=== PATIENT | female | born 1940 | race Caucasian/White ===

== ENCOUNTER 2020-06-02 15:48 | Outpatient (CLI) | payer MEDICARE ==
--- NOTE | 2020-06-03 16:58 | Ultrasound Report ---
PROCEDURE: Duplex Lwr Ext Arterial RT INDICATIONS: NON HEALING ULCER RT POSTERIOR HEEL TECHNIQUE: Color and pulse Doppler interrogation was performed of the right lower extremity arterial system, wit h image documentation. COMPARISON: None. FINDINGS: Common femoral artery: 158 cm/sec, with biphasic flow. Deep profunda femoral artery: 230 cm/sec, with biphasic flow. Proximal superficial femoral artery: 153 cm/sec, with monophasic flow. Mid superficial femoral artery: 137 cm/sec, with monophasic flow. Distal superficial femoral artery: 144 cm/sec, with monophasic flow. Popliteal artery: 94 cm/sec, with monophasic flow. Posterior tibial artery: 34 cm/sec, with monophasic flow. Only visualized distally. Anterior tibial artery/dorsalis pedis: 90/47 cm/sec, with monophasic flow. Holley-scale imaging description: Atherosclerotic plaque seen throughout. IMPRESSION: Exam is technically limited by body habitus and acoustic windows. 1. Elevated velocity in the profunda artery. Suspect is a 50% stenosis. 2. Elevated velocity in the anterior tibial artery. Suspect greater than 50% stenosis. 3. Biphasic and monophasic waveforms in the right lower extremity. Reviewed by: Gurdeep Matthews MD on 06/03/2020 4:57 PM PST Approved by: Gurdeep Matthews MD on 06/03/2020 4:57 PM PST Station ID: [id number]
== END 2020-06-02 15:49 | disposition home or self-care (01) ==
LOC: DI 15:48
PROVIDERS: ATTEND Family Medicine
DX: E11.51 Type 2 diabetes mellitus with diabetic peripheral angiopathy without gangrene (principal); L97.411 Non-pressure chronic ulcer of right heel and midfoot limited to breakdown of skin; I70.201 Unspecified atherosclerosis of native arteries of extremities, right leg

== ENCOUNTER 2020-06-14 08:00 | Outpatient (CLI) | payer MEDICARE ==
[2020-06-14 18:36] LABS: CALCIUM 9.8 mg/dL (8.5-10.3); CREATININE 1.9 mg/dL (0.4-1.0)
[2020-06-14 18:45] LABS: CREATININE,URINE 110.7 mg/dL; MICROALBUMIN,URINE 17.6 mg/dL (0-300.0)
[2020-06-14 20:48] LABS: HEMOGLOBIN A1c% 7.7 % (4.27-6.07)
== END 2020-06-14 23:59 | disposition home or self-care (01) ==
LOC: LAB.WCP 08:00
PROVIDERS: ATTEND Family Medicine
DX: I27.20 Pulmonary hypertension, unspecified (principal); E11.51 Type 2 diabetes mellitus with diabetic peripheral angiopathy without gangrene; E11.22 Type 2 diabetes mellitus with diabetic chronic kidney disease; N18.4 Chronic kidney disease, stage 4 (severe); E11.59 Type 2 diabetes mellitus with other circulatory complications; E11.621 Type 2 diabetes mellitus with foot ulcer; L97.509 Non-pressure chronic ulcer of other part of unspecified foot with unspecified severity
CPT/HCPCS: 36415; 80048; 82043; 82570; 83036

== ENCOUNTER 2020-09-16 08:00 | Outpatient (CLI) | payer MEDICARE ==
[2020-09-16 17:43] LABS: BASOPHILS % (AUTO) 0.3 %; EOSINOPHILS # (AUTO) 0.3 10^3/uL (0.0-0.7); EOSINOPHILS % (AUTO) 4.1 %; HCT - HEMATOCRIT 37.6 % (37.0-47.0); HGB - HEMOGLOBIN 11.4 g/dL (12.0-16.0); LYMPHOCYTES # (AUTO) 1.2 10^3/uL (1.5-3.5); LYMPHOCYTES % (AUTO) 18.4 %; MEAN CORPUSCULAR HEMOGLOBIN 30.3 pg (27.0-31.0); MEAN CORPUSCULAR HGB CONC 30.3 g/dL (32.0-36.0); MEAN PLATELET VOLUME 10.2 fL (7.9-10.8); MONOCYTES % (AUTO) 15.5 %; NEUTROPHILS % (AUTO) 61.4 %; PLT - PLATELET COUNT 241 10^3/uL (130-450); RED BLOOD COUNT 3.76 10^6/uL (4.20-5.40); RED CELL DISTRIBUTION WIDTH 14.1 % (12.0-15.0); WHITE BLOOD COUNT 6.6 x10^3/uL (4.8-10.8)
[2020-09-16 17:54] LABS: ALBUMIN 3.7 g/dL (3.2-5.5); ALBUMIN/GLOBULIN RATIO 0.8 (1.0-2.2); BILIRUBIN,TOTAL 0.6 mg/dL (0.2-1.0); CALCIUM 9.3 mg/dL (8.5-10.3); CREATININE 1.7 mg/dL (0.4-1.0); POTASSIUM 4.5 mmol/L (3.5-5.0); TOTAL PROTEIN 8.2 g/dL (6.7-8.2)
[2020-09-16 18:07] LABS: THYROID STIMULATING HORMONE 1.89 uIU/mL (0.34-5.60)
[2020-09-16 20:20] LABS: ESTIMATED AVERAGE GLUCOSE 137 mg/dL (70-100); HEMOGLOBIN A1c% 6.4 % (4.27-6.07)
== END 2020-09-16 23:59 | disposition home or self-care (01) ==
LOC: LAB.WCP 08:00
PROVIDERS: ATTEND Family Medicine
DX: I48.91 Unspecified atrial fibrillation (principal); I25.10 Atherosclerotic heart disease of native coronary artery without angina pectoris; E11.51 Type 2 diabetes mellitus with diabetic peripheral angiopathy without gangrene; I70.209 Unspecified atherosclerosis of native arteries of extremities, unspecified extremity; N31.9 Neuromuscular dysfunction of bladder, unspecified; K21.00 Gastro-esophageal reflux disease with esophagitis, without bleeding; I12.9 Hypertensive chronic kidney disease with stage 1 through stage 4 chronic kidney disease, or unspecified chronic kidney disease; E11.22 Type 2 diabetes mellitus with diabetic chronic kidney disease; N18.4 Chronic kidney disease, stage 4 (severe)
CPT/HCPCS: 36415; 80053; 83036; 84443; 85025

== ENCOUNTER 2020-10-23 12:15 | Outpatient (CLI) | payer MEDICARE | END 2020-10-23 12:16 | disposition critical access hospital (66) | LOC: EMS 12:15 | DX: R47.81 Slurred speech (principal); R53.1 Weakness | CPT/HCPCS: A0425; A0429 ==

== ENCOUNTER 2020-10-23 12:32 | Inpatient (IN) | payer MEDICARE ==
--- NOTE | 2020-10-23 13:33 | CT Report ---
PROCEDURE: HEAD WO INDICATIONS: R sided deficit TECHNIQUE: Noncontrast 4.5 mm thick angled axial sections acquired from the foramen magnum to the vertex. For r adiation dose reduction, the following was used: automated exposure control, adjustment of mA and/or kV according to patient size. COMPARISON: None. FINDINGS: Image quality: Excellent. CSF spaces: Basal cisterns are patent. No extra-axial fluid collections. Ventricles are normal in size and shape. Brain: No midline shift. No intracranial masses or hemorrhage. Holley-white matter interface is norm al. Age-related volume loss and small vessel ischemic change. Cavernous carotid calcifications and di stal vertebral artery calcifications. Skull and face: Calvarium and visualized facial bones are intact, without suspicious lesions. Sinuses: Visualized sinuses and mastoids are clear. IMPRESSION: 1. ASCVD. 2. No evidence acute stroke, hemorrhage, or mass. 3. Age-related volume loss and small vessel ischemic change. Reviewed by: Best Rodrigues MD on 10/23/2020 12:31 PM PARTHA Approved by: Best Rodrigues MD on 10/23/2020 12:31 PM AKSADIE Station ID: [id number]
--- NOTE | 2020-10-23 13:49 | ED Physician Documentation ---
PD HPI FOCAL NEURO - Stated complaint Stated Complaint: SLURRED SPEECH - Chief complaint Chief Complaint: Neuro - History obtained from History obtained from: Patient - History of Present Illness Timing - onset: Enter time (1999), Last night Timing - duration: Hours Timing - details: Abrupt onset, Still present Severity of deficit: Mild Weakness: Hand Associated symptoms: No: Headache, Nausea / vomiting, Seizure, Syncope, Fall, Head injury, Chest pain, Neck pain, Back pain, Fever Contributing factors: positive: Atrial fibrillation. negative: Anticoagulated Baseline status: positive: A&OX3, ambulatory, indep Similar symptoms before: Has not had sx before Recently seen: Not recently seen - Additional information Additional information: 80-year-old female was in her normal state of health yesterday afternoon and in the evening she began to develop some slurred speech at around 8 PM that her daughter noted on the telephone. The patient thought she was just tired and went to bed. When she awoke she had persistence of the slurred speech and she found it was a bit more difficult to get out of bed than it was to get into bed. She notes some difficulty with handwriting with the right hand and some difficulty with walking related to some clumsiness of the right leg. Review of Systems Constitutional: denies: Fever Eyes: reports: Loss of vision (getting shots for macular degeneration). denies: Decreased vision Ears: denies: Ear pain Nose: denies: Rhinorrhea / runny nose, Congestion Throat: denies: Dental pain / toothache Cardiac: denies: Chest pain / pressure, Palpitations Respiratory: reports: Dyspnea. denies: Cough GI: denies: Abdominal Pain, Nausea, Vomiting, Constipation, Diarrhea : reports: Other (has clarke in place has not noted any change in urine.) Skin: denies: Rash Musculoskeletal: reports: Other (LE swelling present earlier has resolved with increased doses of diuretic.). denies: Neck pain, Back pain Neurologic: reports: Focal weakness, Difficulty speaking. denies: Generalized weakness, Numbness, Confused, Altered mental status, Headache, Head injury, LOC PD PAST MEDICAL HISTORY - Past Medical History Past Medical History: Yes Cardiovascular: Congestive heart failure Endocrine/Autoimmune: Type 2 diabetes - Past Surgical History Past Surgical History: Yes - Allergies Allergies/Adverse Reactions: Allergies Allergy/AdvReac Type Severity Reaction Status Date / Time No Known Drug Allergies Allergy Verified 10/23/20 12:36 - Social History Does the pt smoke?: No Smoking Status: Never smoker Does the pt drink ETOH?: No Does the pt have substance abuse?: No - Immunizations Immunizations are current?: Yes PD ED PE NORMAL - Vitals Vital signs reviewed: Yes (hypertensive ) - General General: Alert and oriented X 3, No acute distress, Well developed/nourished, Other (dysarthric appropriate speech is present) - HEENT HEENT: Atraumatic, PERRL, EOMI - Neck Neck: Supple, no meningeal sign, No bony TTP - Cardiac Cardiac: RRR, No murmur - Respiratory Respiratory: No respiratory distress, Clear bilaterally - Abdomen Abdomen: Normal bowel sounds, Soft, Non tender, Non distended, No organomegaly - Back Back: No CVA TTP, No spinal TTP - Derm Derm: Normal color, Warm and dry, No rash - Extremities Extremities: No deformity, No edema - Neuro Neuro: Alert and oriented X 3, plumbing and heating mechanic 2-12 intact, No sensory deficit, Other (speech is dysarthric right upper is clumbsy mild weakness similar with right leg. ) Eye Opening: Spontaneous Motor: Obeys Commands Verbal: Oriented GCS Score: 15 - Psych Psych: Normal mood, Normal affect NIHSS - Time Time: 12:50 - Level of Consciousness Level of consciousness: (0) Alert, Keenly responsive LOC Questions: (0) Answers both Q's correct LOC Commands: (0) Performs both correctly - Gaze Best Gaze: (0) Normal - Visual Visual: (1) Partial hemianopia - Facial Palsy Facial Palsy: (0) Normal, symmetrical movement - Motor Arms (both separate) Motor Arm (right): (1) Drift Motor Arm (left): (0) No drift - Motor Legs (both separate) Motor Leg (right): (1) Drift Motor Leg (left): (0) No drift - Limb Ataxia Limb Ataxia: (0) Absent - Sensory Sensory: (0) Normal - Best Language Best Language: (0) No aphasia - Dysarthria Dysarthria: (1) [id number] dysarthria - Extinction and Inattention (formally neg Extinction and inattention: (0) No abnormality - Total Score/Results Total Score/Result: 4 Results - Vitals Vitals: Vital Signs - 24 hr 10/23/20 10/23/20 10/23/20 12:37 12:43 14:43 Temperature 36.6 C 36.6 C Heart Rate 78 80 80 Respiratory 16 16 14 Rate Blood Pressure 197/77 H 197/77 H 194/75 H O2 Saturation 95 95 93 Oxygen O2 Source Room air - EKG (time done) 1355 Rate: Rate (enter#) (80) Rhythm: NSR Ischemia: Normal ST segments Compare to prior EKG: Old EKG unavailable Computer interpretation: Agree with computer - Labs Labs: Laboratory Tests 10/23/20 10/23/20 10/23/20 13:57 13:57 13:57 WBC 9.2 RBC 4.31 Hgb 12.9 Hct 41.3 MCV 95.8 MCH 29.9 MCHC 31.2 L RDW 13.7 Plt Count 243 MPV 9.9 Neut # (Auto) 6.2 Lymph # (Auto) 1.3 L Lassen # (Auto) 1.3 H Eos # (Auto) 0.3 Baso # (Auto) 0.1 Absolute Nucleated RBC 0.00 Nucleated RBC % 0.0 Sodium 138 Potassium 4.4 Chloride 100 L Carbon Dioxide 28 Anion Gap 10.0 BUN 48 H Creatinine 1.8 H Estimated GFR (MDRD) 27 L Glucose 140 H Calcium 9.7 Total Bilirubin 0.7 AST 16 ALT 15 Alkaline Phosphatase 83 Troponin I High Sens 17.5 H* B-Natriuretic Peptide Total Protein 8.6 H Albumin 4.0 Globulin 4.6 H Albumin/Globulin Ratio 0.9 L Lipase 23 Urine Color Urine Clarity Urine pH Ur Specific [place] Urine Protein Urine Glucose (UA) Urine Ketones Urine Occult Blood Urine Nitrite Urine Bilirubin Urine Urobilinogen Ur Leukocyte Esterase Ur Microscopic Review Urine Culture Comments 10/23/20 10/23/20 13:57 14:24 WBC RBC Hgb Hct MCV MCH MCHC RDW Plt Count MPV Neut # (Auto) Lymph # (Auto) Lassen # (Auto) Eos # (Auto) Baso # (Auto) Absolute Nucleated RBC Nucleated RBC % Sodium Potassium Chloride Carbon Dioxide Anion Gap BUN Creatinine Estimated GFR (MDRD) Glucose Calcium Total Bilirubin AST ALT Alkaline Phosphatase Troponin I High Sens B-Natriuretic Peptide 51 Total Protein Albumin Globulin Albumin/Globulin Ratio Lipase Urine Color LIGHT YELLOW Urine Clarity CLEAR Urine pH 7.0 Ur Specific [place] 1.010 Urine Protein NEGATIVE Urine Glucose (UA) NEGATIVE Urine Ketones NEGATIVE Urine Occult Blood NEGATIVE Urine Nitrite NEGATIVE Urine Bilirubin NEGATIVE Urine Urobilinogen 0.2 (NORMAL) Ur Leukocyte Esterase NEGATIVE Ur Microscopic Review NOT INDICATED Urine Culture Comments NOT INDICATED - Rads (name of study) CT head Radiology: Prelim report reviewed (Impression: 1. ASCVD. 2. No evidence of acute stroke, hemorrhage, or mass. 3. Age-related volume loss and small vessel ischemic change.), EMP read indepedently, See rad report chest Radiology: Prelim report reviewed (Impression: Congestive heart failure exacerbation.), EMP read indepedently, See rad report Procedures - IVC sono (time) 1300 Bedside IVC sono: IVC measures (cm) (1.66), [facility] PD MEDICAL DECISION MAKING - ED course Complexity details: reviewed old records, reviewed results, re-evaluated patient, considered differential, d/w patient ED course: 80-year-old female with a history of type 2 diabetes intermittent atrial fibrillation pulmonary hypertension and chronic kidney disease stage IV as well as hypertension has had CVA with a right sided deficit. The motor deficit for the lower extremity is less than the upper extremity the motor deficit for the upper extremity is mild and the patient's most pronounced symptom is dysarthria without aphasia. We did not perform angiograms of the head and neck on arrival as the patient was outside of any therapeutic window and she has stage IV renal disease.She will need further work-up and stroke care.Despite the reading on the chest suggesting an exacerbation of CHF the patient has a normal and collapsing IVC on bedside ultrasound and her BNP is nil. Dr. Love is contacted in the case and graciously agrees to care for the patient in the hospital. Departure - Departure Disposition: 66 [facility] DC/Xfer Clinical Impression: Cerebrovascular accident (CVA) Qualifiers: CVA mechanism: unspecified Qualified Code(s): I63.9 - Cerebral infarction, unspecified Condition: Stable
[2020-10-23 14:02] LABS: BASOPHILS # (AUTO) 0.1 10^3/uL (0.0-0.1); BASOPHILS % (AUTO) 0.8 %; EOSINOPHILS # (AUTO) 0.3 10^3/uL (0.0-0.7); EOSINOPHILS % (AUTO) 3.6 %; HCT - HEMATOCRIT 41.3 % (37.0-47.0); HGB - HEMOGLOBIN 12.9 g/dL (12.0-16.0); LYMPHOCYTES # (AUTO) 1.3 10^3/uL (1.5-3.5); LYMPHOCYTES % (AUTO) 13.9 %; MEAN CORPUSCULAR HEMOGLOBIN 29.9 pg (27.0-31.0); MEAN CORPUSCULAR HGB CONC 31.2 g/dL (32.0-36.0); MEAN CORPUSCULAR VOLUME 95.8 fL (81.0-99.0); MEAN PLATELET VOLUME 9.9 fL (7.9-10.8); MONOCYTES # (AUTO) 1.3 10^3/uL (0.0-1.0); MONOCYTES % (AUTO) 13.8 %; NEUTROPHILS # (AUTO) 6.2 10^3/uL (1.5-6.6); NEUTROPHILS % (AUTO) 67.6 %; PLT - PLATELET COUNT 243 10^3/uL (130-450); RED BLOOD COUNT 4.31 10^6/uL (4.20-5.40); RED CELL DISTRIBUTION WIDTH 13.7 % (12.0-15.0); WHITE BLOOD COUNT 9.2 x10^3/uL (4.8-10.8)
--- NOTE | 2020-10-23 14:10 | XRAY Report ---
PROCEDURE: Chest 1 View X-Ray INDICATIONS: chest pain TECHNIQUE: One view of the chest was acquired. COMPARISON: None FINDINGS: Surgical changes and devices: Remote CABG. Lungs and pleura: No pleural effusions or pneumothorax. Interstitial pulmonary edema. Mediastinum: Mediastinal contours appear normal. Cardiomegaly. Bones and chest wall: No suspicious bony lesions. Overlying soft tissues appear unremarkable. IMPRESSION: Congestive heart failure exacerbation. Reviewed by: Best Rodrigues MD on 10/23/2020 1:08 PM PARTHA Approved by: Best Rodrigues MD on 10/23/2020 1:08 PM PARTHA Station ID: [id number]
[2020-10-23 14:18] LABS: ALBUMIN/GLOBULIN RATIO 0.9 (1.0-2.2); BILIRUBIN,TOTAL 0.7 mg/dL (0.2-1.0); CALCIUM 9.7 mg/dL (8.5-10.3); CREATININE 1.8 mg/dL (0.4-1.0); POTASSIUM 4.4 mmol/L (3.5-5.0); TOTAL PROTEIN 8.6 g/dL (6.7-8.2)
[2020-10-23 14:30] LABS: BILIRUBIN,URINE NEGATIVE (NEGATIVE); GLUCOSE, URINE (UA) NEGATIVE (NEGATIVE); KETONES,URINE (UA) NEGATIVE (NEGATIVE); LEUKOCYTE ESTERASE, URINE NEGATIVE (NEGATIVE); NITRITE,URINE NEGATIVE (NEGATIVE); OCCULT BLOOD,URINE NEGATIVE (NEGATIVE); PROTEIN,URINE NEGATIVE (NEGATIVE); UROBILINOGEN,URINE 0.2 (NORMAL) E.U./dL (NORMAL)
[2020-10-23 14:42] LABS: CLARITY,URINE CLEAR (CLEAR)
[2020-10-23] MEDS ORDERED: SODIUM CHLORIDE FLUSH 0.9% 10 ML SYRINGE IVP PRN (15:38)
[2020-10-23] MEDS ORDERED: ONDANSETRON 4 MG/2 ML VIAL IVP PRN (15:38)
[2020-10-23] MEDS ORDERED: ACETAMINOPHEN 325 MG TABLET PO PRN (15:38)
--- NOTE | 2020-10-23 15:51 | HISTORY & PHYSICAL EXAMINATION ---
Chief Complaint - Chief Complaint Chief Complaint: Stroke-like symptoms History of Present Illness - Admitted From Admitted From:: ED - History Obtained From History obtained from: ED provider and patient and her daughter, at bedside - History of Present Illness HPI Comment/Other: 80-year-old female with a history of obesity, type 2 diabetes on Insulin, paroxysmal atrial fibrillation, pulmonary hypertension, chronic kidney disease stage IV, hypertension, PAD who had a non-healing R heel ulcer and underwent revascularization (by PTCA?) of the R leg at [facility] 2 mos ago. Over the last 1 month, she was put on bid from once daily diuretic pill to treat leg edema. She presented to the ER after she noticed slurred speech which started at bedtime yesterday. She called her daughter who reported that she sounded "like she was drunk" and advised that she go to be seen in the ER for it but she did not and went to sleep. Today the slurred speech continued after awakening and also she noticed more difficulty/clumsiness getting out of bed. She had obvious dysarthric speech, by ER eval, and subtle R arm and R leg weakness. She had a head CT done, without contrast due to having a creat of 1.9. It showed no parenchymal stroke findings but small vessel ischemic changes seen and age- related volume loss. A CXR was read as having CHF. She is being admitted to Inpatient status on the Hospitalist service, for further evaluation and management of an acute stroke with symptoms that have lasted approx. 20 hours. History - Past Medical History Cardiovascular: reports: Congestive heart failure Endocrine/Autoimmune: reports: Type 2 diabetes Derm: reports: Other (R heel ulcer for 1.5 years.) MRSA Hx?: No - Past Surgical History Cardiovascular: reports: CABG (and stents after CABG), Angioplasty (of R leg artery 2 mos ago (details not known)) - Family & Social History Family History: Mother: , Father: Living arrangement: At home Living Situation: With family (Lives with her daughter and son-in-law at their house.) Social History Notes: She herself gave up driving a car 10 years ago. She mostly sits in the house with the right leg elevated (with the right heel ulcer) and does not walk much. - Substance History Use: Uses substance without health or social issues: NONE (She quit smoking cigarettes 30 years ago. She has half of a beer on rare occasions. No history of marijuana use.) - POLST Patient has POLST: No POLST Status: DNR (The patient would not want CPR but would agree to be on the ventilator if it is temporary.) Meds/Allgy - Home Medications Home Medications: Ambulatory Orders Medication Instructions Recorded Confirmed Aspirin [Bhupinder] 0.5 tab PO BID 10/23/20 Clopidogrel [Plavix] 75 mg PO DAILY 10/23/20 Furosemide [Lasix] 80 mg PO BID 10/23/20 Insulin Aspart [NovoLOG] 30 units SQ BID 10/23/20 Insulin Glargine [Lantus Solostar] 40 units SQ BID 10/23/20 Metoprolol Tartrate [Lopressor] 50 mg PO BID 10/23/20 Omeprazole 40 mg PO DAILY 10/23/20 Simvastatin [Zocor] 40 mg PO DAILY 10/23/20 cilostazoL [Cilostazol] 50 mg PO BID 10/23/20 - Allergies Allergies/Adverse Reactions: Allergies Allergy/AdvReac Type Severity Reaction Status Date / Time No Known Drug Allergies Allergy Verified 10/23/20 12:36 Review of Systems - Constitutional Constitutional: reports: Weakness - Musculoskeletal Musculoskeletal: reports: Muscle weakness - Integumentary Integumentary: reports: Lesions (The right heel ulcer has been treated for 1.5 years, it used to be approximately 20 cm in diameter, currently is down to 3 cm and is not deep.) - Neurological Neurological: reports: Slurred speech - All Other Systems All Other Systems: reports: Reviewed and negative Exam - Vital Signs Vital Signs: Vital Signs x48h Temp Pulse Resp BP Pulse Ox 10/23/20 14:43 80 14 194/75 H 93 10/23/20 12:43 36.6 C 80 16 197/77 H 95 10/23/20 12:37 36.6 C 78 16 197/77 H 95 - Physical Exam General Appearance: positive: No acute distress, Alert, Other (facial droop) Eyes Bilateral: positive: Normal inspection, PERRL, EOMI ENT: positive: ENT inspection nml, No signs of dehydration Neck: positive: Nml inspection, No JVD Respiratory: positive: No respiratory distress, Breath sounds nml Cardiovascular: positive: No murmur, Irregularly irregular Abdomen: positive: Non-tender, Nml bowel sounds, No distention, Other (Obese with pannus) Skin: positive: Warm, Dry Extremities: positive: Other (Trace left pedal edema, not on the right. Right heel ulcer is dry, pink and very shallow.) Neurologic/Psychiatric: positive: Oriented x3, Weakness (Right hand medical record librarian is 4/5, left is 5/5), Slurred/abnml speech Conclusion/Plan - Problem List (1) Cerebrovascular accident (CVA) Conclusion/Plan: She is past the window of any intervention or for transfer. We will place her on telemetry and watch for recurrence of her A. fib. Await reconciliation of her medication list to determine why she is not on anticoagulation if there has been prior A. fib. Check serial troponins. Obtain lipid panel and treat per guidelines. Obtain Echo with bubble study and look for source of embolus. Obtain brain MRI (on Sunday, today is Sunday). Obtain carotid evaluation with Dopplers to rule out source of embolus. Begin with PT and OT evals. Speech evaluation for speech therapy. Plan was discussed with the patient, and her daughter at bedside and they are agreeable with the plan. Qualifiers: CVA mechanism: unspecified Qualified Code(s): I63.9 - Cerebral infarction, unspecified (2) CKD (chronic kidney disease) Conclusion/Plan: As per Hx. Avoid nephrotoxins. Follow BMP daily (3) HTN (hypertension) Conclusion/Plan: Her blood pressure is elevated running 1 77-1 90 systolic. We will allow some permissive hypertension for the first 24 hours, but not above approx. 180 systolic. Awaiting reconciliation of her medication list to resume some of her BP meds. Diet will be low salt. (4) DM type 2 (diabetes mellitus, type 2) Conclusion/Plan: Will order a diabetic diet, fingerstick checks, sliding scale insulin for coverage. Awaiting reconciliation of her medication list to resume some of her medications. Will obtain A1c (5) CHF (congestive heart failure) Conclusion/Plan: The chest x-ray was read as CHF despite normal BNP. Place om telemetry. Obtain Echo. Will cycle troponins to rule out a cardiac event as cause of possible CHF. Wait for reconciliation of her medication list to resume some of her meds (6) PVD (peripheral vascular disease) Conclusion/Plan: By the patient's description, she has severe PVD, requiring PTCA of the right leg artery to improve blood flow to a nonhealing right heel ulcer. We will continue with her vascular medications when list is available (7) Hx of CABG Conclusion/Plan: Patient states she did not have a stress test before undergoing the recent vascular intervention of the right leg 2 months ago. Continue with blood pressure, cholesterol and vascular management as above - Lab Results Fish Bones: 10/23/20 13:57 10/23/20 13:57 - Diagnostic Imaging Results Diagnostic Imaging Results: positive: Final report reviewed - EKG Results EKG Interpreted Independently: Yes EKG Comparison: Old EKG unavailable EKG Findings: NSR, PAC, late R/S transition.
--- NOTE | 2020-10-23 16:52 | PHARMACY PROGRESS NOTE ---
- Best Possible Medication History Admit Date and Time: 10/23/20 1538 Processed by: Pharmacy Medication History completed: In progress Secondary Source(s): Physician records, Pharmacy records, Insurance records Medication list has been updated using recent PCP visit summary and insurance/pharmacy records. Pharmacy will attempt to conduct a patient interview tomorrow if nursing is unable to confirm medications with patient this evening. As the person ultimately responsible for medication therapy, providers are able to order a medication from an existing home medication list in [facility] via the "Reconcile Routine" prior to Confirmation of that medication by technical support analyst. Such practice is discouraged except when the physician, in their clinical judgment, deems that a medical need exists for a medication without regard to previous use.
[2020-10-23 17:47] LABS: B. PARAPERTUSSIS- RESP PCR PAN NOT DETECTED; B. PERTUSSIS- RESP PCR PANEL NOT DETECTED; C. PNEUMONIAE- RESP PCR PANEL NOT DETECTED; CORONAVIRUS 229E-RESP PCR NOT DETECTED; CORONAVIRUS HKU1-RESP PCR NOT DETECTED; CORONAVIRUS NL63-RESP PCR NOT DETECTED; CORONAVIRUS OC43-RESP PCR NOT DETECTED; HUMAN METAPNEUMOVIRUS NOT DETECTED; INFLUENZA A- RESP PCR PANEL NOT DETECTED; INFLUENZA B - RESP PCR PANEL NOT DETECTED; M. PNEUMONIAE- RESP PCR PANEL NOT DETECTED; PARAINFLUENZA VIRUS 1 NOT DETECTED; PARAINFLUENZA VIRUS 2 NOT DETECTED; PARAINFLUENZA VIRUS 3 NOT DETECTED; PARAINFLUENZA VIRUS 4 NOT DETECTED; RHINOVIRUS/ENTEROVIRUS NOT DETECTED; RSV- RESP PCR PANEL NOT DETECTED; SARS-CoV-2 -RESP PCR PANEL NOT DETECTED
[2020-10-23] MEDS: SODIUM CHLORIDE FLUSH 0.9% 10 ML SYRINGE IVP SCH (18:15)
[2020-10-23] MEDS: INSULIN ASPART 300 UNIT/3 ML PEN SUBQ SCH ×2 (18:16→21:26)
[2020-10-23] MEDS ORDERED: ASPIRIN CHEW 81 MG TABLET PO STA (19:16)
[2020-10-23] MEDS: INSULIN GLARGINE 300 UNIT/3 ML PEN SUBQ SCH (21:25)
[2020-10-23] MEDS: METOPROLOL SUCCINATE 25 MG TABLET PO SCH (21:25)
[2020-10-23] MEDS: ATORVASTATIN 40 MG TABLET PO SCH (21:25)
[2020-10-24] MEDS: SODIUM CHLORIDE FLUSH 0.9% 10 ML SYRINGE IVP SCH ×3 (01:08→16:56)
[2020-10-24 05:21] LABS: CALCIUM 9.6 mg/dL (8.5-10.3); CREATININE 1.5 mg/dL (0.4-1.0); MAGNESIUM 2.3 mg/dL (1.7-2.8); POTASSIUM 4.7 mmol/L (3.5-5.0)
[2020-10-24 05:28] LABS: CHOL/HDL RATIO 2.9 (<4.4); CHOLESTEROL 130 mg/dL; HDL CHOLESTEROL 45 mg/dL; LDL CHOLESTEROL,CALCULATED 50 mg/dL; LDL/HDL RATIO 1.1 (<4.4); TRIGLYCERIDES 173 mg/dL; VLDL CHOLESTEROL 35 mg/dL
[2020-10-24] MEDS: FUROSEMIDE 40 MG TABLET PO SCH ×2 (06:08→13:27)
[2020-10-24] MEDS: METOPROLOL SUCCINATE 25 MG TABLET PO SCH ×2 (07:41→20:47)
[2020-10-24] MEDS: INSULIN GLARGINE 300 UNIT/3 ML PEN SUBQ SCH ×2 (08:16→22:19)
[2020-10-24] MEDS: INSULIN ASPART 300 UNIT/3 ML PEN SUBQ SCH ×4 (08:16→22:20)
[2020-10-24] MEDS: ASPIRIN EC 325 MG TABLET PO SCH (08:16)
[2020-10-24] MEDS: CLOPIDOGREL 75 MG TABLET PO SCH (08:16)
[2020-10-24] MEDS ORDERED: METOPROLOL SUCCINATE 25 MG TABLET PO SCH (09:00)
[2020-10-24] MEDS ORDERED: FUROSEMIDE 40 MG TABLET PO SCH (09:00)
[2020-10-24 11:53] LABS: ESTIMATED AVERAGE GLUCOSE 154 mg/dL (70-100)
[2020-10-24] MEDS: FAMOTIDINE 20 MG TABLET PO PRN (14:43)
--- NOTE | 2020-10-24 18:54 | PROVIDER PROGRESS NOTE ---
Assessment/Plan - Problem List (1) Cerebrovascular accident (CVA) Qualifiers: CVA mechanism: unspecified Qualified Code(s): I63.9 - Cerebral infarction, unspecified Assessment/Plan: By my exam, her speech is the same slurred and abnormal but the right arm strength has nearly normalized. PT started today, she just pivoted to sit in a chair. We are awaiting the brain MRI tomorrow (today Sunday). Awaiting Echo to evaluate a cardiac source of embolus. Planning carotid Dopplers to evaluate vascular source of embolus. Lipid panel is consistent with a diabetic: High triglycerides. She has relatively good LDL control. Continue with statin, and will add Fibrate for the high triglycerides. Continue aspirin daily. (2) CKD (chronic kidney disease) Assessment/Plan: Abnormal but slightly better creatinine, 1.8>> 1.5. Avoid nephrotoxins. Follow BMP daily (3) HTN (hypertension) Assessment/Plan: we allowed permissive hypertension yesterday. Now plan on keeping blood pressure 140 systolic or better. Continue with her usual home meds, adjust as needed. (4) DM type 2 (diabetes mellitus, type 2) Assessment/Plan: Her A1c came back at 7.0. Continue with Lantus insulin, sliding scale insulin, fingerstick checks, carb controlled diet. (5) PVD (peripheral vascular disease) Assessment/Plan: We will continue her aspirin, Pletal, Plavix and statin medications. Wound care of the right heel ulcer is just topical dressing changes. (6) CHF (congestive heart failure) Assessment/Plan: Awaiting echo to assess her LVEF. There was no MD, troponins were low and flat Oral Lasix continues (7) Hx of CABG Assessment/Plan: Continue her aspirin and statin, beta-vijay and meds for diabetes and blood pressure (8) Chronic indwelling Mirza catheter Assessment/Plan: Etiology unknown. Continue with routine care - Current Meds Current Meds: Current Medications Generic Name Dose Route Start Last Admin Trade Name Christ PRN Reason Stop Dose Admin Aspirin 325 mg 10/24/20 09:00 10/24/20 08:16 Aspirin Ec 325 Mg Tablet PO 325 mg DAILY DEONTE Administration Atorvastatin Calcium 80 mg 10/23/20 21:00 10/23/20 21:25 Atorvastatin 40 Mg Tablet PO 80 mg QPM DEONTE Administration Clopidogrel Bisulfate 75 mg 10/24/20 09:00 10/24/20 08:16 Clopidogrel 75 Mg Tablet PO 75 mg DAILY DEONTE Administration Famotidine 20 mg 10/23/20 19:20 10/24/20 14:43 Famotidine 20 Mg Tablet PO 20 mg BID PRN Administration Heartburn Furosemide 40 mg 10/24/20 06:00 10/24/20 13:27 Furosemide 40 Mg Tablet PO 40 mg BIDDIURETIC DEONTE Administration Insulin Aspart 1 - 5 unit 10/23/20 17:00 10/24/20 16:55 Insulin Aspart 300 Unit/3 Ml Pen SUBQ 3 unit 0800,1200,1700,2100 DEONTE Administration Protocol Insulin Glargine 5 unit 10/23/20 21:00 10/24/20 08:16 Insulin Glargine 300 Unit/3 Ml Pen SUBQ 5 unit BID DEONTE Administration Metoprolol Succinate 50 mg 10/23/20 21:00 10/24/20 07:41 Metoprolol Succinate 25 Mg Tablet PO Not Given BID DEONTE Sodium Chloride 10 ml 10/23/20 17:00 10/24/20 16:56 Sodium Chloride Flush 0.9% 10 Ml Syringe IVP 10 ml 0100,0900,1700 DEONTE Administration - Lab Result Fish Bone Diagrams: 10/23/20 13:57 10/24/20 05:00 - Additional Planning My Orders: My Active Orders 10/23/20 19:20 Famotidine [Pepcid] 20 mg PO BID PRN 10/23/20 21:00 Atorvastatin [Lipitor] 80 mg PO QPM Insulin Glargine [Lantus Solostar] 5 unit SUBQ BID Metoprolol Succinate [Toprol Xl] 50 mg PO BID 10/24/[address] [ST] Routine 10/24/20 06:00 Furosemide [Lasix] 40 mg PO BIDDIURETIC 10/24/20 09:00 Aspirin EC [Ecotrin] 325 mg PO DAILY Clopidogrel [Plavix] 75 mg PO DAILY 10/25/20 05:00 BMP - BASIC METABOLIC PANEL [CHEM] DAILYLAB 10/25/20 08:00 BRAIN WO [MRI] Stat Echo Complete w/Bubble Study [ECHO] Routine Objective Vital Signs: Vital Signs - 24 hr 10/23/20 10/24/20 10/24/20 20:51 00:29 04:50 Temperature 36.7 C 37.0 C 37.0 C Heart Rate [ 87 70 65 Brachial] Heart Rate [ Sitting] Heart Rate [ Supine] Respiratory 16 16 16 Rate Blood Pressure 171/77 H 105/57 L 133/56 H [Left Brachial artery] Blood Pressure [Sitting] Blood Pressure [Supine] O2 Saturation 94 94 93 10/24/20 10/24/20 10/24/20 07:36 11:15 13:00 Temperature 36.9 C 36.8 C Heart Rate [ 61 77 Brachial] Heart Rate [ 78 Sitting] Heart Rate [ 71 Supine] Respiratory 17 18 Rate Blood Pressure 142/64 H 173/58 H [Left Brachial artery] Blood Pressure 179/60 H [Sitting] Blood Pressure 173/59 H [Supine] O2 Saturation 95 96 10/24/20 16:45 Temperature 36.6 C Heart Rate [ 74 Brachial] Heart Rate [ Sitting] Heart Rate [ Supine] Respiratory 18 Rate Blood Pressure 174/60 H [Left Brachial artery] Blood Pressure [Sitting] Blood Pressure [Supine] O2 Saturation 98 Oxygen O2 Source Room air I&O (Last 24 Hrs): Intake and Output Totals x24h 10/22/20 10/23/20 10/24/20 23:59 23:59 23:59 Intake Total 540 1000 Output Total 750 1125 Balance -210 -125 HEENT: Mucous membr. moist/pink Neck: Supple, No JVD Neuro: Alert, Other (Slurred speech, R and L squeeze is 5/5) Cardiovascular: Regular rate, No murmurs Respiratory: No respiratory distress, Breath sounds nml Abdomen: Normal bowel sounds, Soft - Results Results: Laboratory Results WBC 9.2 x10^3/uL (4.8-10.8) 10/23/20 13:57 RBC 4.31 10^6/uL (4.20-5.40) 10/23/20 13:57 Hgb 12.9 g/dL (12.0-16.0) 10/23/20 13:57 Hct 41.3 % (37.0-47.0) 10/23/20 13:57 MCV 95.8 fL (81.0-99.0) 10/23/20 13:57 MCH 29.9 pg (27.0-31.0) 10/23/20 13:57 MCHC 31.2 g/dL (32.0-36.0) L 10/23/20 13:57 RDW 13.7 % (12.0-15.0) 10/23/20 13:57 Plt Count 243 10^3/uL (130-450) 10/23/20 13:57 MPV 9.9 fL (7.9-10.8) 10/23/20 13:57 Neut # (Auto) 6.2 10^3/uL (1.5-6.6) 10/23/20 13:57 Lymph # (Auto) 1.3 10^3/uL (1.5-3.5) L 10/23/20 13:57 [place] # (Auto) 1.3 10^3/uL (0.0-1.0) H 10/23/20 13:57 Eos # (Auto) 0.3 10^3/uL (0.0-0.7) 10/23/20 13:57 Baso # (Auto) 0.1 10^3/uL (0.0-0.1) 10/23/20 13:57 Absolute Nucleated RBC 0.00 x10^3/uL 10/23/20 13:57 Nucleated RBC % 0.0 /100WBC 10/23/20 13:57 Sodium 138 mmol/L (135-145) 10/24/20 05:00 Potassium 4.7 mmol/L (3.5-5.0) 10/24/20 05:00 Chloride 101 mmol/L (101-111) 10/24/20 05:00 Carbon Dioxide 27 mmol/L (21-32) 10/24/20 05:00 Anion Gap 10.0 (6-13) 10/24/20 05:00 BUN 40 mg/dL (6-20) H 10/24/20 05:00 Creatinine 1.5 mg/dL (0.4-1.0) H 10/24/20 05:00 Estimated GFR (MDRD) 34 (>89) L 10/24/20 05:00 Glucose 174 mg/dL (70-100) H 10/24/20 05:00 Estimat Average Glucose 154 mg/dL (70-100) H 10/24/20 05:00 Hemoglobin A1c % 7.0 % (4.27-6.07) H 10/24/20 05:00 Calcium 9.6 mg/dL (8.5-10.3) 10/24/20 05:00 Magnesium 2.3 mg/dL (1.7-2.8) 10/24/20 05:00 Total Bilirubin 0.7 mg/dL (0.2-1.0) 10/23/20 13:57 AST 16 IU/L (10-42) 10/23/20 13:57 ALT 15 IU/L (10-60) 10/23/20 13:57 Alkaline Phosphatase 83 IU/L (42-121) 10/23/20 13:57 Troponin I High Sens 18.4 ng/L (2.3-14.8) H* 10/23/20 15:58 B-Natriuretic Peptide 51 pg/mL (5-100) 10/23/20 13:57 Total Protein 8.6 g/dL (6.7-8.2) H 10/23/20 13:57 Albumin 4.0 g/dL (3.2-5.5) 10/23/20 13:57 Globulin 4.6 g/dL (2.1-4.2) H 10/23/20 13:57 Albumin/Globulin Ratio 0.9 (1.0-2.2) L 10/23/20 13:57 Triglycerides 173 mg/dL (-149) H 10/24/20 05:00 Cholesterol 130 mg/dL (-199) 10/24/20 05:00 LDL Cholesterol, Calc 50 mg/dL (-129) 10/24/20 05:00 VLDL Cholesterol 35 mg/dL 10/24/20 05:00 HDL Cholesterol 45 mg/dL (60-) L 10/24/20 05:00 LDL/HDL Ratio 1.1 (<4.4) 10/24/20 05:00 Cholesterol/HDL Ratio 2.9 (<4.4) 10/24/20 05:00 Lipase 23 U/L (22-51) 10/23/20 13:57 Urine Color LIGHT YELLOW 10/23/20 14:24 Urine Clarity CLEAR (CLEAR) 10/23/20 14:24 Urine pH 7.0 PH (5.0-7.5) 10/23/20 14:24 Ur Specific [place] 1.010 (1.002-1.030) 10/23/20 14:24 Urine Protein NEGATIVE mg/dL (NEGATIVE) 10/23/20 14:24 Urine Glucose (UA) NEGATIVE mg/dL (NEGATIVE) 10/23/20 14:24 Urine Ketones NEGATIVE mg/dL (NEGATIVE) 10/23/20 14:24 Urine Occult Blood NEGATIVE (NEGATIVE) 10/23/20 14:24 Urine Nitrite NEGATIVE (NEGATIVE) 10/23/20 14:24 Urine Bilirubin NEGATIVE (NEGATIVE) 10/23/20 14:24 Urine Urobilinogen 0.2 (NORMAL) E.U./dL (NORMAL) 10/23/20 14:24 Ur Leukocyte Esterase NEGATIVE (NEGATIVE) 10/23/20 14:24 Ur Microscopic Review NOT INDICATED 10/23/20 14:24 Urine Culture Comments NOT INDICATED 10/23/20 14:24 Nasal Adenovirus (PCR) NOT DETECTED 10/23/20 15:14 Nasal B. parapertussis DNA (PCR) NOT DETECTED 10/23/20 15:14 Nasal Coronavir 229E PCR NOT DETECTED 10/23/20 15:14 Nasal Coronavir HKU1 PCR NOT DETECTED 10/23/20 15:14 Nasal Coronavir NL63 PCR NOT DETECTED 10/23/20 15:14 Nasal Coronavir OC43 PCR NOT DETECTED 10/23/20 15:14 Nasal Enterovir/Rhinovir PCR NOT DETECTED 10/23/20 15:14 Nasal Influenza B PCR NOT DETECTED 10/23/20 15:14 Nasal Influenza A PCR NOT DETECTED 10/23/20 15:14 Nasal Parainfluen 1 PCR NOT DETECTED 10/23/20 15:14 Nasal Parainfluen 2 PCR NOT DETECTED 10/23/20 15:14 Nasal Parainfluen 3 PCR NOT DETECTED 10/23/20 15:14 Nasal Parainfluen 4 PCR NOT DETECTED 10/23/20 15:14 Nasal RSV (PCR) NOT DETECTED 10/23/20 15:14 Nasal B.pertussis DNA PCR NOT DETECTED 10/23/20 15:14 Nasal C.pneumoniae (PCR) NOT DETECTED 10/23/20 15:14 Jose Human Metapneumo PCR NOT DETECTED 10/23/20 15:14 Nasal M.pneumoniae (PCR) NOT DETECTED 10/23/20 15:14 Nasal SARS-CoV-2 (PCR) NOT DETECTED 10/23/20 15:14
[2020-10-24] MEDS ORDERED: amLODIPine 5 MG TABLET PO STA (20:20)
[2020-10-24] MEDS: cilostazoL 100 MG TABLET PO SCH (20:47)
[2020-10-24] MEDS: ATORVASTATIN 40 MG TABLET PO SCH (20:47)
[2020-10-25] MEDS: SODIUM CHLORIDE FLUSH 0.9% 10 ML SYRINGE IVP SCH ×3 (00:03→17:24)
[2020-10-25] MEDS: FUROSEMIDE 40 MG TABLET PO SCH ×2 (05:17→14:38)
[2020-10-25 05:25] LABS: CALCIUM 9.4 mg/dL (8.5-10.3); CREATININE 1.5 mg/dL (0.4-1.0); MAGNESIUM 2.1 mg/dL (1.7-2.8); POTASSIUM 4.5 mmol/L (3.5-5.0)
[2020-10-25] MEDS: INSULIN GLARGINE 300 UNIT/3 ML PEN SUBQ SCH (08:17)
[2020-10-25] MEDS: INSULIN ASPART 300 UNIT/3 ML PEN SUBQ SCH ×5 (08:18→22:09)
[2020-10-25] MEDS: ASPIRIN EC 325 MG TABLET PO SCH (08:19)
[2020-10-25] MEDS: FAMOTIDINE 20 MG TABLET PO PRN (08:19)
[2020-10-25] MEDS: CLOPIDOGREL 75 MG TABLET PO SCH (08:19)
[2020-10-25] MEDS: cilostazoL 100 MG TABLET PO SCH ×2 (08:19→22:07)
[2020-10-25] MEDS: amLODIPine 5 MG TABLET PO SCH (08:20)
[2020-10-25] MEDS: METOPROLOL SUCCINATE 25 MG TABLET PO SCH ×2 (08:22→22:07)
--- NOTE | 2020-10-25 09:47 | Ultrasound Report ---
PROCEDURE: Carotid Doppler Complete INDICATIONS: CVA TECHNIQUE: Color and pulse Doppler interrogation was performed of both carotid systems, with image documentation and velocity measurements. COMPARISON: No prior carotid ultrasound.. 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 Common carotid artery peak systolic velocity: 71 cm/sec. Internal carotid artery peak systolic velocity: 169 cm/sec. Internal carotid artery end diastolic velocity: 31 cm/sec. External carotid artery peak systolic velocity: 197 cm/sec. ICA/CCA peak systolic ratio: 2.4 . Holley scale imaging description: Moderate calcific and soft plaque Percent internal carotid artery stenosis: 50-69% stenosis . Vertebral artery: Flow direction is antegrade. Left side: Brachial blood pressure: 185/73 mm Hg. Common carotid artery peak systolic velocity: 148 cm/sec. Internal carotid artery peak systolic velocity: occluded Internal carotid artery end diastolic velocity: occluded External carotid artery peak systolic velocity: 128 cm/sec. ICA/CCA peak systolic ratio: Not applicable . Holley scale imaging description: Calcific and soft plaque at the common carotid and at the bifurcatio n, but the ICA is occluded immediately above the bifurcation. Percent internal carotid artery stenosis: Occluded . Vertebral artery: Flow direction is antegrade. IMPRESSION: There is a 50-69% stenosis within the proximal internal carotid artery on the right. This vessel is o ccluded on the left. Vertebral arterial flow is antegrade in direction. The estimate of stenosis included in the report of the imaging study was calculated using the NASCET method Reviewed by: Maruice Klein MD on 10/25/2020 9:46 AM PDT Approved by: Maurice Klein MD on 10/25/2020 9:46 AM PDT Station ID: [id number]
--- NOTE | 2020-10-25 10:15 | MRI Report ---
PROCEDURE: Brain W/O INDICATIONS: CVA TECHNIQUE: Noncontrast axial T1 spin echo, axial T2 fast spin echo, sagittal and axial FLAIR, coronal T2 fast sp in echo, axial gradient echo, axial diffusion and ADC through the brain. COMPARISON: Head CT 10/23/2020.. FINDINGS: Image quality: Moderately degraded by mild patient motion during image acquisition.. CSF Spaces: Basal cisterns are patent. No extra-axial fluid collections. Ventricles are normal in size and shape. Brain: No intracranial masses or hemorrhage. Holley/white matter interface is normal. Brainstem appe ars normal except for a 4 mm elevated diffusion signal focus within the anterior left pontine portion of the brainstem. This produces slight adjacent mass effect.. Diffusion-weighted images demonstrate no acute ischemic insult. No chronic ischemic insults. Normal intravascular flow voids are present . Skull and face: Calvarium has normal marrow signal. Orbits appear normal. Sinuses: Sinuses and mastoids are clear. IMPRESSION: Small 4 mm focus of left anterior pontine brainstem subacute or acute ischemic injury, with minimal a ssociated mass effect. Elsewhere the study appears normal. Reviewed by: Maurice Klein MD on 10/25/2020 10:14 AM PDT Approved by: Maurice Klein MD on 10/25/2020 10:14 AM PDT Station ID: [id number]
[2020-10-25] MEDS: FENOFIBRATE 48 MG TABLET PO SCH (12:07)
--- NOTE | 2020-10-25 17:46 | PROVIDER PROGRESS NOTE ---
Assessment/Plan - Problem List (1) Cerebrovascular accident (CVA) Qualifiers: CVA mechanism: unspecified Qualified Code(s): I63.9 - Cerebral infarction, unspecified Assessment/Plan: MRI of brain was done and she has a pontine brainstem stroke. Continue ASA, Plavix and statin which she was on, adding Fenofibrate for high TG. Continue PT/OT/. Her wishes are to rehab at home, if poss. Speech Therapy eval was ordered for her slurred speech. Echo results pending today as part of further work-up. Cartotid Dopplers pending as well. Depending on results, she may be ready foir [facility] tomorrow. (2) CKD (chronic kidney disease) Assessment/Plan: Stable creat at 1.5 (3) HTN (hypertension) Assessment/Plan: Permissive HTN was allowed for a day. Yesterday Amlodipine was added to her home meds for better BP control. BP now running 130-170/60 (4) DM type 2 (diabetes mellitus, type 2) Assessment/Plan: Her long-acting insulin has been adjusted based on the list reconciled by pharmacist. 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 She has never been at this hospital before and the Echo is to be done today to evaluate LVEF, chamber sizes, valves and PA pressure, as well as for shunt or clot (potential source of embolism).>>> No clot, no shunt, normal LVEF (7) Hx of CABG Assessment/Plan: As per Hx (8) Chronic indwelling Mirza catheter Assessment/Plan: As per Hx, etiology unclear. - Current Meds Current Meds: Current Medications Generic Name Dose Route Start Last Admin Trade Name Freq PRN Reason Stop Dose Admin Acetaminophen 650 mg 10/23/20 15:38 10/25/20 17:28 Acetaminophen 325 Mg Tablet PO 650 mg Q4HR PRN Administration Pain or Fever > 38C (100.4F) Amlodipine Besylate 2.5 mg 10/25/20 09:00 10/25/20 08:20 Amlodipine 5 Mg Tablet PO 2.5 mg DAILY DEONTE Administration Aspirin 325 mg 10/24/20 09:00 10/25/20 08:19 Aspirin Ec 325 Mg Tablet PO 325 mg DAILY DEONTE Administration Atorvastatin Calcium 80 mg 10/23/20 21:00 10/24/20 20:47 Atorvastatin 40 Mg Tablet PO 80 mg QPM DEONTE Administration Cilostazol 100 mg 10/24/20 21:00 10/25/20 08:19 Cilostazol 100 Mg Tablet PO 100 mg BID DEONTE Administration Clopidogrel Bisulfate 75 mg 10/24/20 09:00 10/25/20 08:19 Clopidogrel 75 Mg Tablet PO 75 mg DAILY DEONTE Administration Famotidine 20 mg 10/23/20 19:20 10/25/20 08:19 Famotidine 20 Mg Tablet PO 20 mg BID PRN Administration Heartburn Fenofibrate 144 mg 10/25/20 12:00 10/25/20 12:07 Fenofibrate 48 Mg Tablet PO 144 mg DAILY DEONTE Administration Furosemide 40 mg 10/24/20 06:00 10/25/20 14:38 Furosemide 40 Mg Tablet PO 40 mg BIDDIURETIC DEONTE Administration Insulin Aspart 1 - 5 unit 10/23/20 17:00 10/25/20 17:24 Insulin Aspart 300 Unit/3 Ml Pen SUBQ 5 unit 0800,1200,1700,2100 [facility] Administration Protocol Metoprolol Succinate 50 mg 10/23/20 21:00 10/25/20 08:22 Metoprolol Succinate 25 Mg Tablet PO Not Given BID [facility] Sodium Chloride 10 ml 10/23/20 17:00 10/25/20 17:24 Sodium Chloride Flush 0.9% 10 Ml Syringe IVP 10 ml 0100,0900,1700 [facility] Administration - Lab Result Fish Bone Diagrams: 10/26/20 07:18 10/26/20 07:18 - Additional Planning My Orders: My Active Orders 10/24/20 21:00 cilostazoL [Pletal] 100 mg PO BID 10/25/20 08:00 Echo Complete w/Bubble Study [ECHO] Routine 10/25/20 09:00 amLODIPine [Norvasc] 2.5 mg PO DAILY 10/25/20 09:04 Oxygen Therapy [RC] .PRN 10/25/20 10:56 Home Oxygen [RC] .ONCE 10/25/20 12:00 Fenofibrate [Tricor] 144 mg PO DAILY 10/25/20 21:00 Insulin Aspart [NovoLOG] 30 unit SUBQ BIDWM 10/26/20 09:00 Magnesium Oxide [Mag Ox] 400 mg PO DAILY Subjective - Subjective Patient Reports: Feeling Better (She noticed her speech is better, but R renee head still weaker than L), Resting Comfortably Objective Vital Signs: Vital Signs - 24 hr 10/24/20 10/25/20 10/25/20 21:00 00:07 05:14 Temperature 36.6 C 37.0 C 37.2 C Heart Rate [ 76 71 66 Brachial] Heart Rate [ Sitting] Heart Rate [ Supine] Respiratory 18 17 17 Rate Blood Pressure 184/74 H 150/60 H 136/45 H [Left Brachial artery] Blood Pressure [Sitting] Blood Pressure [Supine] O2 Saturation 96 91 L 91 L 10/25/20 10/25/20 10/25/20 08:14 11:35 14:35 Temperature 36.8 C 36.4 C L Heart Rate [ 68 75 Brachial] Heart Rate [ 72 Sitting] Heart Rate [ 71 Supine] Respiratory 18 18 Rate Blood Pressure 144/53 H 144/53 H [Left Brachial artery] Blood Pressure 134/63 H [Sitting] Blood Pressure 173/59 H [Supine] O2 Saturation 92 92 Oxygen O2 Source Nasal cannula I&O (Last 24 Hrs): Intake and Output Totals x24h 10/23/20 10/24/20 10/25/20 23:59 23:59 23:59 Intake Total 540 1700 580 Output Total 750 2024 1999 Balance -210 -690 -3789 General: Alert, Oriented x3 HEENT: Mucous membr. 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) Cardiovascular: Regular rate, No murmurs Respiratory: No respiratory distress Abdomen: Soft (Obese with pannus) Genitourinary: Other (Has chroni bladder cath and bag) Extremities: Other (R heel wound has bandage) - Results Results: Laboratory Results WBC 9.2 x10^3/uL (4.8-10.8) 10/23/20 13:57 RBC 4.31 10^6/uL (4.20-5.40) 10/23/20 13:57 Hgb 12.9 g/dL (12.0-16.0) 10/23/20 13:57 Hct 41.3 % (37.0-47.0) 10/23/20 13:57 MCV 95.8 fL (81.0-99.0) 10/23/20 13:57 MCH 29.9 pg (27.0-31.0) 10/23/20 13:57 MCHC 31.2 g/dL (32.0-36.0) L 10/23/20 13:57 RDW 13.7 % (12.0-15.0) 10/23/20 13:57 Plt Count 243 10^3/uL (130-450) 10/23/20 13:57 MPV 9.9 fL (7.9-10.8) 10/23/20 13:57 Neut # (Auto) 6.2 10^3/uL (1.5-6.6) 10/23/20 13:57 Lymph # (Auto) 1.3 10^3/uL (1.5-3.5) L 10/23/20 13:57 [place] # (Auto) 1.3 10^3/uL (0.0-1.0) H 10/23/20 13:57 Eos # (Auto) 0.3 10^3/uL (0.0-0.7) 10/23/20 13:57 Baso # (Auto) 0.1 10^3/uL (0.0-0.1) 10/23/20 13:57 Absolute Nucleated RBC 0.00 x10^3/uL 10/23/20 13:57 Nucleated RBC % 0.0 /100WBC 10/23/20 13:57 Sodium 135 mmol/L (135-145) 10/25/20 05:01 Potassium 4.5 mmol/L (3.5-5.0) 10/25/20 05:01 Chloride 98 mmol/L (101-111) L 10/25/20 05:01 Carbon Dioxide 28 mmol/L (21-32) 10/25/20 05:01 Anion Gap 9.0 (6-13) 10/25/20 05:01 BUN 39 mg/dL (6-20) H 10/25/20 05:01 Creatinine 1.5 mg/dL (0.4-1.0) H 10/25/20 05:01 Estimated GFR (MDRD) 34 (>89) L 10/25/20 05:01 Glucose 222 mg/dL (70-100) H 10/25/20 05:01 Estimat Average Glucose 154 mg/dL (70-100) H 10/24/20 05:00 Hemoglobin A1c % 7.0 % (4.27-6.07) H 10/24/20 05:00 Calcium 9.4 mg/dL (8.5-10.3) 10/25/20 05:01 Magnesium 2.1 mg/dL (1.7-2.8) 10/25/20 05:01 Total Bilirubin 0.7 mg/dL (0.2-1.0) 10/23/20 13:57 AST 16 IU/L (10-42) 10/23/20 13:57 ALT 15 IU/L (10-60) 10/23/20 13:57 Alkaline Phosphatase 83 IU/L (42-121) 10/23/20 13:57 Troponin I High Sens 18.4 ng/L (2.3-14.8) H* 10/23/20 15:58 B-Natriuretic Peptide 51 pg/mL (5-100) 10/23/20 13:57 Total Protein 8.6 g/dL (6.7-8.2) H 10/23/20 13:57 Albumin 4.0 g/dL (3.2-5.5) 10/23/20 13:57 Globulin 4.6 g/dL (2.1-4.2) H 10/23/20 13:57 Albumin/Globulin Ratio 0.9 (1.0-2.2) L 10/23/20 13:57 Triglycerides 173 mg/dL (-149) H 10/24/20 05:00 Cholesterol 130 mg/dL (-199) 10/24/20 05:00 LDL Cholesterol, Calc 50 mg/dL (-129) 10/24/20 05:00 VLDL Cholesterol 35 mg/dL 10/24/20 05:00 HDL Cholesterol 45 mg/dL (60-) L 10/24/20 05:00 LDL/HDL Ratio 1.1 (<4.4) 10/24/20 05:00 Cholesterol/HDL Ratio 2.9 (<4.4) 10/24/20 05:00 Lipase 23 U/L (22-51) 10/23/20 13:57 Urine Color LIGHT YELLOW 10/23/20 14:24 Urine Clarity CLEAR (CLEAR) 10/23/20 14:24 Urine pH 7.0 PH (5.0-7.5) 10/23/20 14:24 Ur Specific [employer] 1.010 (1.002-1.030) 10/23/20 14:24 Urine Protein NEGATIVE mg/dL (NEGATIVE) 10/23/20 14:24 Urine Glucose (UA) NEGATIVE mg/dL (NEGATIVE) 10/23/20 14:24 Urine Ketones NEGATIVE mg/dL (NEGATIVE) 10/23/20 14:24 Urine Occult Blood NEGATIVE (NEGATIVE) 10/23/20 14:24 Urine Nitrite NEGATIVE (NEGATIVE) 10/23/20 14:24 Urine Bilirubin NEGATIVE (NEGATIVE) 10/23/20 14:24 Urine Urobilinogen 0.2 (NORMAL) E.U./dL (NORMAL) 10/23/20 14:24 Ur Leukocyte Esterase NEGATIVE (NEGATIVE) 10/23/20 14:24 Ur Microscopic Review NOT INDICATED 10/23/20 14:24 Urine Culture Comments NOT INDICATED 10/23/20 14:24 Nasal Adenovirus (PCR) NOT DETECTED 10/23/20 15:14 Nasal B. parapertussis DNA (PCR) NOT DETECTED 10/23/20 15:14 Nasal Coronavir 229E PCR NOT DETECTED 10/23/20 15:14 Nasal Coronavir HKU1 PCR NOT DETECTED 10/23/20 15:14 Nasal Coronavir NL63 PCR NOT DETECTED 10/23/20 15:14 Nasal Coronavir OC43 PCR NOT DETECTED 10/23/20 15:14 Nasal Enterovir/Rhinovir PCR NOT DETECTED 10/23/20 15:14 Nasal Influenza B PCR NOT DETECTED 10/23/20 15:14 Nasal Influenza A PCR NOT DETECTED 10/23/20 15:14 Nasal Parainfluen 1 PCR NOT DETECTED 10/23/20 15:14 Nasal Parainfluen 2 PCR NOT DETECTED 10/23/20 15:14 Nasal Parainfluen 3 PCR NOT DETECTED 10/23/20 15:14 Nasal Parainfluen 4 PCR NOT DETECTED 10/23/20 15:14 Nasal RSV (PCR) NOT DETECTED 10/23/20 15:14 Nasal B.pertussis DNA PCR NOT DETECTED 10/23/20 15:14 Nasal C.pneumoniae (PCR) NOT DETECTED 10/23/20 15:14 Jose Human Metapneumo PCR NOT DETECTED 10/23/20 15:14 Nasal M.pneumoniae (PCR) NOT DETECTED 10/23/20 15:14 Nasal SARS-CoV-2 (PCR) NOT DETECTED 10/23/20 15:14
[2020-10-25] MEDS: ATORVASTATIN 40 MG TABLET PO SCH (22:07)
[2020-10-26] MEDS: SODIUM CHLORIDE FLUSH 0.9% 10 ML SYRINGE IVP SCH ×2 (00:59→08:14)
[2020-10-26] MEDS: FUROSEMIDE 40 MG TABLET PO SCH (05:48)
[2020-10-26 07:35] LABS: CALCIUM 9.3 mg/dL (8.5-10.3); CREATININE 1.7 mg/dL (0.4-1.0); POTASSIUM 4.2 mmol/L (3.5-5.0)
[2020-10-26 07:45] LABS: BASOPHILS % (AUTO) 0.6 %; EOSINOPHILS # (AUTO) 0.3 10^3/uL (0.0-0.7); HCT - HEMATOCRIT 38.9 % (37.0-47.0); HGB - HEMOGLOBIN 12.5 g/dL (12.0-16.0); LYMPHOCYTES # (AUTO) 1.1 10^3/uL (1.5-3.5); LYMPHOCYTES % (AUTO) 15.7 %; MEAN CORPUSCULAR HEMOGLOBIN 30.3 pg (27.0-31.0); MEAN CORPUSCULAR HGB CONC 32.1 g/dL (32.0-36.0); MEAN CORPUSCULAR VOLUME 94.2 fL (81.0-99.0); MEAN PLATELET VOLUME 9.9 fL (7.9-10.8); MONOCYTES # (AUTO) 1.2 10^3/uL (0.0-1.0); MONOCYTES % (AUTO) 16.4 %; NEUTROPHILS # (AUTO) 4.6 10^3/uL (1.5-6.6); NEUTROPHILS % (AUTO) 62.9 %; PLT - PLATELET COUNT 219 10^3/uL (130-450); RED BLOOD COUNT 4.13 10^6/uL (4.20-5.40); RED CELL DISTRIBUTION WIDTH 13.2 % (12.0-15.0); WHITE BLOOD COUNT 7.3 x10^3/uL (4.8-10.8)
[2020-10-26] MEDS: INSULIN ASPART 300 UNIT/3 ML PEN SUBQ SCH ×3 (08:06→11:44)
[2020-10-26] MEDS: ASPIRIN EC 325 MG TABLET PO SCH (08:11)
[2020-10-26] MEDS: FENOFIBRATE 48 MG TABLET PO SCH (08:11)
[2020-10-26] MEDS: CLOPIDOGREL 75 MG TABLET PO SCH (08:13)
[2020-10-26] MEDS: FAMOTIDINE 20 MG TABLET PO PRN (08:13)
[2020-10-26] MEDS: amLODIPine 5 MG TABLET PO SCH (08:14)
[2020-10-26] MEDS: METOPROLOL SUCCINATE 25 MG TABLET PO SCH (08:14)
[2020-10-26] MEDS ORDERED: MAGNESIUM OXIDE 400 MG TABLET PO SCH (09:00)
[2020-10-26] MEDS: cilostazoL 100 MG TABLET PO SCH (09:18)
--- NOTE | 2020-10-26 11:39 | Discharge Plan ---
Discharge Plan Problem Reviewed?: Yes Disposition: Home Health Service Condition: Stable Prescriptions: amLODIPine [Norvasc] 2.5 mg PO DAILY #30 tablet Famotidine [Pepcid] 20 mg PO BID PRN #60 tablet PRN Reason: Heartburn cilostazoL [Pletal] 100 mg PO BID #60 tablet Fenofibrate [Tricor] 144 mg PO DAILY #30 tablet Simvastatin [Zocor] 80 mg PO DAILY #60 tab Diet: Diabetic Activity Restrictions: Activity as Tolerated Shower Restrictions: No Driving Restrictions: Yes Instruction Topics: Stroke Brain Body Effects, Aphasia, Blockage Carotid Artery Health Concerns: Stroke, Diabetes, High Blood Pressure Plan of Treatment: Medications, good blood pressure and blood sugar control. Home health physical therapy and occupational therapy. 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 This may have contributed to your stroke. Trying to remove this blockage can be risky, but should be discussed with a vascular surgeon. Please discuss this with your PCP as you may need a referral. Follow-Up Care: Home Health - PT, Home Health - OT No Smoking: If you smoke, Please STOP! Call for help. Follow-up with: Paul Huizar MD [Primary Care Provider] -
[2020-10-26 12:10] VITALS: BP 152/52
--- NOTE | 2020-10-26 18:53 | DISCHARGE SUMMARY ---
Discharge Summary Admit Date: 10/23/20 Discharge Date: 10/26/20 Discharging Provider: Charly Mclaughlin MD Primary Care Provider: Paul Huizar Code Status: Do Not Attempt Resuscitation Condition at Discharge: Stable Discharge Disposition: Home Health Service - DIAGNOSES Admission Diagnoses: CVA CKD Hypertension Diabetes type 2CHF not in exacerbation PVD History of CABG Discharge Diagnoses with Status of Each Condition: CVAimproved, dysarthria and weakness improved CKDimproved Hypertensionimproved Type 2 diabetes mellitus stable Stable diagnoses: PVD CHF History of CABG Chronic indwelling Mirza catheter - HPI History of Present Illness: 80-year-old female with a history of obesity, type 2 diabetes on Insulin, paroxysmal atrial fibrillation, pulmonary hypertension, chronic kidney disease stage IV, hypertension, PAD who had a non-healing R heel ulcer and underwent revascularization (by PTCA?) of the R leg at [facility] 2 mos ago. Over the last 1 month, she was put on bid from once daily diuretic pill to treat leg edema. She presented to the ER after she noticed slurred speech which started at bedtime yesterday. She called her daughter who reported that she sounded "like she was drunk" and advised that she go to be seen in the ER for it but she did not and went to sleep. Today the slurred speech continued after awakening and also she noticed more difficulty/clumsiness getting out of bed. She had obvious dysarthric speech, by ER eval, and subtle R arm and R leg weakness. She had a head CT done, without contrast due to having a creat of 1.9. It showed no parenchymal stroke findings but small vessel ischemic changes seen and age- related volume loss. A CXR was read as having CHF. She is being admitted to Inpatient status on the Hospitalist service, for further evaluation and management of an acute stroke with symptoms that have lasted approx. 20 hours. - HOSPITAL COURSE Hospital Course: After admission the patient underwent a typical stroke work-up. 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 MRI done 10/25/2010 showed small 4 mm focus of the left anterior pontine brainstem suggestive of a subacute or acute stroke with minimal mass-effect. Please the patient improved. She was seen by speech, occupational, and physical therapy. Progress with ambulation showing provement in strength of the right side, and improvement of the dysarthria. Home health with physical and occupational therapy was recommended and family members were involved in the decision making decided to take the patient home with home health.Blood pressure remained relatively well controlled and on the day of discharge was 152/52 and had not gone over 160 systolic for at least 24 hours. Recommendations were made for outpatient follow-up including home health and vascular surgery referral by PCP to discuss any therapeutic options for the total occlusion of the left ICA. - ALLERGIES Allergies/Adverse Reactions: Allergies Allergy/AdvReac Type Severity Reaction Status Date / Time No Known Drug Allergies Allergy Verified 10/23/20 12:36 - MEDICATIONS Home Medications: Ambulatory Orders Medication Instructions Recorded Confirmed Aspirin [Bhupinder] 162.5 mg PO BID 10/23/20 10/25/20 Clopidogrel [Plavix] 75 mg PO DAILY 10/23/20 10/25/20 Furosemide [Lasix] 40 mg PO BID 10/23/20 10/25/20 Insulin Aspart [NovoLOG] 30 units SQ BID 10/23/20 10/25/20 Insulin Glargine [Lantus Solostar] 40 units SQ BID 10/23/20 10/25/20 Metoprolol Tartrate [Lopressor] 50 mg PO BID 10/23/20 10/25/20 Ferrous Sulfate 325 mg PO DAILY 10/25/20 10/25/20 Magnesium Oxide [Mag Ox] 400 mg PO DAILY 10/25/20 10/25/20 Multivitamin 1 tab PO DAILY 10/25/20 10/25/20 Spironolactone [Aldactone] 25 mg PO DAILY 10/25/20 10/25/20 Famotidine [Pepcid] 20 mg PO BID PRN #60 tablet 10/26/20 Fenofibrate [Tricor] 144 mg PO DAILY #30 tablet 10/26/20 Insulin Aspart [NovoLOG] 30 unit SUBQ BIDWM 10/26/20 Metoprolol Succinate [Toprol Xl] 50 mg PO BID tablet 10/26/20 Simvastatin [Zocor] 80 mg PO DAILY #60 tab 10/26/20 amLODIPine [Norvasc] 2.5 mg PO DAILY #30 tablet 10/26/20 cilostazoL [Pletal] 100 mg PO BID #60 tablet 06/22/21 - PHYSICAL EXAM AT DISCHARGE General Appearance: positive: No acute distress Eyes Bilateral: positive: Normal inspection ENT: positive: ENT inspection nml Neck: positive: Nml inspection Respiratory: positive: Chest non-tender Cardiovascular: positive: No murmur, No gallop, Irregularly irregular Peripheral Pulses: positive: 2+ Extremities: positive: Non-tender, Full ROM Neurologic/Psychiatric: positive: Oriented x3, CN's nml (2-12), Weakness (Slightly weakness of the right upper extremity noted), Slurred/abnml speech (Trace dysarthria). negative: Motor nml - LABS Result Diagrams: 10/26/20 07:18 10/26/20 07:18 - DIAGNOSTIC IMAGING Diagnostic Imaging Results: Final report reviewed, See rad report - FOLLOW UP Follow Up: PCP Consider vascular surgery referral Home Health OT/PT/RN - TIME SPENT Time Spent in Discharge (Minutes): 36
== END 2020-10-26 15:57 | disposition home health service (06) | DRG 65 ==
LOC: EDUNIT# → ED 12:32 → MS3 15:38
PROVIDERS: ADMIT Internal Medicine; ATTEND Family Medicine Sports Medicine
DX: I63.9 Cerebral infarction, unspecified (principal); G81.91 Hemiplegia, unspecified affecting right dominant side; I13.0 Hypertensive heart and chronic kidney disease with heart failure and stage 1 through stage 4 chronic kidney disease, or unspecified chronic kidney disease; N18.4 Chronic kidney disease, stage 4 (severe); Z68.41 Body mass index [BMI] 40.0-44.9, adult; L97.419 Non-pressure chronic ulcer of right heel and midfoot with unspecified severity; R47.1 Dysarthria and anarthria; I50.9 Heart failure, unspecified; Z20.822 Contact with and (suspected) exposure to COVID-19; I48.91 Unspecified atrial fibrillation; I25.10 Atherosclerotic heart disease of native coronary artery without angina pectoris; R29.704 NIHSS score 4; E11.22 Type 2 diabetes mellitus with diabetic chronic kidney disease; E11.51 Type 2 diabetes mellitus with diabetic peripheral angiopathy without gangrene; Z96.0 Presence of urogenital implants; E66.9 Obesity, unspecified; I48.0 Paroxysmal atrial fibrillation; I27.20 Pulmonary hypertension, unspecified; E11.621 Type 2 diabetes mellitus with foot ulcer; I65.23 Occlusion and stenosis of bilateral carotid arteries; Z95.1 Presence of aortocoronary bypass graft; Z95.5 Presence of coronary angioplasty implant and graft; Z98.62 Peripheral vascular angioplasty status; Z87.891 Personal history of nicotine dependence; Z66 Do not resuscitate; Z79.82 Long term (current) use of aspirin
CPT/HCPCS: 36415; 70450; 70551; 71045; 80048; 80053; 80061; 81003; 83036; 83690; 83735; 83880; 84484; 85025; 87631; 92522; 92610; 93005; 93306; 93880; 97112; 97116; 97162; 97165; 97535; 99283; 99285; A9270; J1815; 0202U; 81001; 83721; 87086

== ENCOUNTER 2020-12-13 08:00 | Outpatient (CLI) | payer MEDICARE ==
[2020-12-13 12:44] LABS: BASOPHILS % (AUTO) 0.7 %; EOSINOPHILS # (AUTO) 0.3 10^3/uL (0.0-0.7); EOSINOPHILS % (AUTO) 5.3 %; HCT - HEMATOCRIT 40.4 % (37.0-47.0); HGB - HEMOGLOBIN 12.5 g/dL (12.0-16.0); LYMPHOCYTES # (AUTO) 1.2 10^3/uL (1.5-3.5); LYMPHOCYTES % (AUTO) 19.7 %; MEAN CORPUSCULAR HEMOGLOBIN 29.6 pg (27.0-31.0); MEAN CORPUSCULAR HGB CONC 30.9 g/dL (32.0-36.0); MEAN CORPUSCULAR VOLUME 95.7 fL (81.0-99.0); MEAN PLATELET VOLUME 10.3 fL (7.9-10.8); MONOCYTES # (AUTO) 0.9 10^3/uL (0.0-1.0); MONOCYTES % (AUTO) 14.9 %; NEUTROPHILS # (AUTO) 3.6 10^3/uL (1.5-6.6); NEUTROPHILS % (AUTO) 59.1 %; PLT - PLATELET COUNT 285 10^3/uL (130-450); RED BLOOD COUNT 4.22 10^6/uL (4.20-5.40); RED CELL DISTRIBUTION WIDTH 14.4 % (12.0-15.0)
[2020-12-13 12:56] LABS: ALBUMIN 3.8 g/dL (3.2-5.5); ALBUMIN/GLOBULIN RATIO 0.8 (1.0-2.2); ALKALINE PHOSPHATASE 74 IU/L (42-121); ALT ALANINE AMINOTRANSFERASE 14 IU/L (10-60); AST ASPARTATE AMINOTRANSFERASE 16 IU/L (10-42); BILIRUBIN,TOTAL 0.8 mg/dL (0.2-1.0); BUN - BLOOD UREA NITROGEN 49 mg/dL (6-20); CALCIUM 9.7 mg/dL (8.5-10.3); CARBON DIOXIDE - CO2 28 mmol/L (21-32); CHLORIDE 99 mmol/L (101-111); CHOL/HDL RATIO 2.4 (<4.4); CHOLESTEROL 121 mg/dL; GFR - MDRD 24 (>89); GLUCOSE 163 mg/dL (70-100); HDL CHOLESTEROL 50 mg/dL; LDL CHOLESTEROL,CALCULATED 38 mg/dL; LDL/HDL RATIO 0.8 (<4.4); POTASSIUM 4.2 mmol/L (3.5-5.0); SODIUM 138 mmol/L (135-145); TOTAL PROTEIN 8.3 g/dL (6.7-8.2); TRIGLYCERIDES 164 mg/dL; VLDL CHOLESTEROL 33 mg/dL
[2020-12-13 12:57] LABS: CREATININE,URINE 89.4 mg/dL; MICROALBUM/CREATININE RATIO,UR 86.1 ug/mg (<30.0); MICROALBUMIN,URINE 7.7 mg/dL (0-300.0)
[2020-12-13 13:03] LABS: THYROID STIMULATING HORMONE 3.46 uIU/mL (0.34-5.60)
[2020-12-13 13:13] LABS: ESTIMATED AVERAGE GLUCOSE 160 mg/dL (70-100); HEMOGLOBIN A1c% 7.2 % (4.27-6.07)
== END 2020-12-13 23:59 | disposition home or self-care (01) ==
LOC: LAB.WCP 08:00
PROVIDERS: ATTEND Family Medicine
DX: I48.91 Unspecified atrial fibrillation (principal); I25.10 Atherosclerotic heart disease of native coronary artery without angina pectoris; I70.209 Unspecified atherosclerosis of native arteries of extremities, unspecified extremity; N31.9 Neuromuscular dysfunction of bladder, unspecified; E66.9 Obesity, unspecified; L97.909 Non-pressure chronic ulcer of unspecified part of unspecified lower leg with unspecified severity; I12.9 Hypertensive chronic kidney disease with stage 1 through stage 4 chronic kidney disease, or unspecified chronic kidney disease; N18.4 Chronic kidney disease, stage 4 (severe)
CPT/HCPCS: 36415; 80053; 80061; 82043; 82570; 83036; 83721; 84443; 85025

== ENCOUNTER 2021-05-02 10:03 | Outpatient (CLI) | payer MEDICARE | END 2021-05-02 10:04 | disposition critical access hospital (66) | LOC: EMS 10:03 | DX: R11.2 Nausea with vomiting, unspecified (principal); R53.83 Other fatigue; R53.1 Weakness; R41.0 Disorientation, unspecified | CPT/HCPCS: A0425; A0427 ==

== ENCOUNTER 2021-05-02 10:22 | Observation (INO) | payer MEDICARE ==
[2021-05-02] MEDS ORDERED: DEXTROSE GEL 37.5 GM TUBE ONE (10:35)
[2021-05-02] MEDS ORDERED: DEXTROSE 50% ABBOJECT 25 GM/50 ML SYRINGE ONE (10:36)
--- NOTE | 2021-05-02 11:18 | ED Physician Documentation ---
PD HPI NVD - Stated complaint Stated Complaint: N/V/WEAKNESS - Chief complaint Chief Complaint: Neuro - History obtained from History obtained from: Patient - History of Present Illness Timing - onset: How many days ago (3-4) Timing - duration: Days (3-4) Timing - details: Gradual onset (Patient has had 3 to 4 days of nausea with episodic vomiting and several episodes daily of loose to watery stool. She denies melena. Intermittent crampy abdominal pains. No consistent pain. No fever. Does have general weakness. Low sugar today due to poor intake. Last Lantus was last evening.) Associated symptoms: Abdominal pain (intermittent cramping, no consistent.), Loss of appetite (for several days.). No: Fever Contributing factors: Recent antibiotics (UTI about a month ago and symptoms cleared.), Diabetes (low blood sugar [employer] And given dextrose.). No: Sick contact, Bad food Improved by: No: Eating Worsened by: Eating Similar symptoms before: Has not had sx before Recently seen: Not recently seen Review of Systems Constitutional: denies: Fever, Chills Nose: denies: Rhinorrhea / runny nose, Congestion Throat: denies: Sore throat Respiratory: denies: Cough GI: reports: Nausea, Diarrhea (several times daily with green color. No noted blood nor melena.). denies: Vomiting : denies: Dysuria, Frequency Skin: denies: Rash Musculoskeletal: denies: Neck pain, Back pain Neurologic: reports: Generalized weakness (worsening over the few days.). denies: Focal weakness, Numbness, Headache PD PAST MEDICAL HISTORY - Past Medical History Cardiovascular: Congestive heart failure Respiratory: Shortness of breath Neuro: None Endocrine/Autoimmune: Type 2 diabetes GI: GERD, Colon polyps, Hemorrhoids : Indwelling catheter Psych: None Musculoskeletal: Osteoarthritis, Chronic back pain Derm: Other (R heel ulcer for 1.5 years.) - Past Surgical History Past Surgical History: Yes General: Colonoscopy Cardiovascular: CABG HEENT: Cataracts, Tonsil/Adenoidectomy - Present Medications Home Medications: Ambulatory Orders Medication Instructions Recorded Confirmed Aspirin [Bhupinder] 162.5 mg PO BID 10/23/20 05/02/21 Clopidogrel [Plavix] 75 mg PO DAILY 10/23/20 05/02/21 Furosemide [Lasix] 40 mg PO BID 10/23/20 05/02/21 Insulin Glargine [Lantus Solostar] 30 units SQ BID 10/23/20 05/02/21 Metoprolol Tartrate [Lopressor] 50 mg PO BID 10/23/20 05/02/21 Ferrous Sulfate 325 mg PO DAILY 10/25/20 05/02/21 Multivitamin 0.5 tab PO DAILY 10/25/20 05/02/21 Spironolactone [Aldactone] 25 mg PO DAILY 10/25/20 05/02/21 Insulin Aspart [NovoLOG] 30 unit SUBQ BIDWM 10/26/20 05/02/21 amLODIPine [Norvasc] 2.5 mg PO DAILY #30 tablet 10/26/20 05/02/21 cilostazoL [Pletal] 100 mg PO BID #60 tablet 10/26/20 05/02/21 Cholecalciferol [Vitamin D3] 25 mcg PO DAILY 05/02/21 05/02/21 Fenofibrate 160 mg PO DAILY 05/02/21 05/02/21 Magnesium Oxide 400 mg PO DAILY 05/02/21 05/02/21 Omeprazole 40 mg PO DAILY 05/02/21 05/02/21 Simvastatin [Zocor] 20 mg PO QPM 05/02/21 05/02/21 - Allergies Allergies/Adverse Reactions: Allergies Allergy/AdvReac Type Severity Reaction Status Date / Time No Known Drug Allergies Allergy Verified 05/02/21 10:36 - Social History Does the pt smoke?: No Smoking Status: Former smoker Does the pt drink ETOH?: No Does the pt have substance abuse?: No - Immunizations Immunizations are current?: Yes - POLST Patient has POLST: No POLST Status: DNR (The patient would not want CPR but would agree to be on the ventilator if it is temporary.) PD ED PE NORMAL - Vitals Vital signs reviewed: Yes - General General: Alert and oriented X 3, No acute distress, Well developed/nourished - Neck Neck: Supple, no meningeal sign, No adenopathy - Cardiac Cardiac: RRR, No murmur - Respiratory Respiratory: Clear bilaterally - Abdomen Abdomen: Soft, Non tender. No: Normal bowel sounds (increased) - Female Female : Deferred - Rectal Rectal: Other (liquid stool in vault, green color. Sent for [place]) - Derm Derm: No: Normal color (pale color) - Extremities Extremities: No edema, No calf tenderness / cord Results - Vitals Vitals: Vital Signs - 24 hr 05/02/21 05/02/21 05/02/21 10:36 12:46 13:48 Temperature 36.7 C Heart Rate 81 80 72 Respiratory 19 22 15 Rate Blood Pressure 156/51 H 206/69 H 155/83 H O2 Saturation 99 98 100 05/02/21 15:00 Temperature Heart Rate 65 Respiratory 18 Rate Blood Pressure 195/65 H O2 Saturation 99 Oxygen O2 Source Nasal cannula Oxygen Flow Rate 2 - Labs Labs: Microbiology 05/02/21 11:56 Occult Blood - Final Stool Laboratory Tests 05/02/21 05/02/21 05/02/21 12:30 12:30 12:30 WBC 10.9 H RBC 2.98 L Hgb 8.6 L Hct 27.0 L MCV 90.6 MCH 28.9 MCHC 31.9 L RDW 14.0 Plt Count 518 H MPV 8.4 Neut # (Auto) 8.1 H Lymph # (Auto) 0.9 L Will # (Auto) 1.4 H Eos # (Auto) 0.3 Baso # (Auto) 0.1 Absolute Nucleated RBC 0.00 Nucleated RBC % 0.0 Sodium 135 Potassium 4.0 Chloride 94 L Carbon Dioxide 29 Anion Gap 12.0 BUN 48 H Creatinine 2.3 H Estimated GFR (MDRD) 21 L Glucose 165 H Calcium 9.1 Magnesium 2.3 Total Bilirubin 0.6 AST 28 ALT 25 Alkaline Phosphatase 49 Troponin I High Sens 43.1 H* B-Natriuretic Peptide Total Protein 8.4 H Albumin 2.5 L Globulin 5.9 H Albumin/Globulin Ratio 0.4 L Lipase 39 Urine Color Urine Clarity Urine pH Ur Specific [place] Urine Protein Urine Glucose (UA) Urine Ketones Urine Occult Blood Urine Nitrite Urine Bilirubin Urine Urobilinogen Ur Leukocyte Esterase Urine RBC Urine WBC Ur Squamous Epith Cells Urine Bacteria Ur Microscopic Review Urine Culture Comments Nasal Adenovirus (PCR) Nasal B. parapertussis DNA (PCR) Nasal Coronavir 229E PCR Nasal Coronavir HKU1 PCR Nasal Coronavir NL63 PCR Nasal Coronavir OC43 PCR Nasal Enterovir/Rhinovir PCR Nasal Influenza B PCR Nasal Influenza A PCR Nasal Parainfluen 1 PCR Nasal Parainfluen 2 PCR Nasal Parainfluen 3 PCR Nasal Parainfluen 4 PCR Nasal RSV (PCR) Nasal B.pertussis DNA PCR Nasal C.pneumoniae (PCR) Jose Human Metapneumo PCR Nasal M.pneumoniae (PCR) Nasal SARS-CoV-2 (PCR) 05/02/21 05/02/21 05/02/21 12:30 12:37 13:36 WBC RBC Hgb Hct MCV MCH MCHC RDW Plt Count MPV Neut # (Auto) Lymph # (Auto) Will # (Auto) Eos # (Auto) Baso # (Auto) Absolute Nucleated RBC Nucleated RBC % Sodium Potassium Chloride Carbon Dioxide Anion Gap BUN Creatinine Estimated GFR (MDRD) Glucose Calcium Magnesium Total Bilirubin AST ALT Alkaline Phosphatase Troponin I High Sens B-Natriuretic Peptide 328 H Total Protein Albumin Globulin Albumin/Globulin Ratio Lipase Urine Color YELLOW Urine Clarity HAZY Urine pH 6.0 Ur Specific [place] 1.015 Urine Protein NEGATIVE Urine Glucose (UA) NEGATIVE Urine Ketones NEGATIVE Urine Occult Blood TRACE-INTA Urine Nitrite NEGATIVE Urine Bilirubin NEGATIVE Urine Urobilinogen 0.2 (NORMAL) Ur Leukocyte Esterase MODERATE H Urine RBC 0-5 Urine WBC >25 H Ur Squamous Epith Cells MOD Squamous H Urine Bacteria Many H Ur Microscopic Review INDICATED Urine Culture Comments NOT INDICATED Nasal Adenovirus (PCR) NOT DETECTED Nasal B. parapertussis DNA (PCR) NOT DETECTED Nasal Coronavir 229E PCR NOT DETECTED Nasal Coronavir HKU1 PCR NOT DETECTED Nasal Coronavir NL63 PCR NOT DETECTED Nasal Coronavir OC43 PCR NOT DETECTED Nasal Enterovir/Rhinovir PCR NOT DETECTED Nasal Influenza B PCR NOT DETECTED Nasal Influenza A PCR NOT DETECTED Nasal Parainfluen 1 PCR NOT DETECTED Nasal Parainfluen 2 PCR NOT DETECTED Nasal Parainfluen 3 PCR NOT DETECTED Nasal Parainfluen 4 PCR NOT DETECTED Nasal RSV (PCR) NOT DETECTED Nasal B.pertussis DNA PCR NOT DETECTED Nasal C.pneumoniae (PCR) NOT DETECTED Jose Human Metapneumo PCR NOT DETECTED Nasal M.pneumoniae (PCR) NOT DETECTED Nasal SARS-CoV-2 (PCR) NOT DETECTED - Rads (name of study) chest xray Radiology: Prelim report reviewed, See rad report PD MEDICAL DECISION MAKING - ED course Complexity details: reviewed results (elevated creatinine. LOw blood count without signs of blood loss (guiac negative stool). Pending stool test still. ), re-evaluated patient (blood sugar checked hourly and remained good after initial doses of sugar. ), considered differential (consider infectious cause, electrolytes off, dehydration - given history of nausea and diarrhea. Had abx a month ago for UTI, so check for c. diff. ), d/w patient Departure - Departure Disposition: ED Place in Observation Clinical Impression: Dehydration, Hypoglycemia, Nausea vomiting and diarrhea, LIA (acute kidney injury), Acute anemia Condition: Stable Record reviewed to determine appropriate education?: Yes Discharge Date/Time: 05/02/21 16:43
[2021-05-02] MEDS ORDERED: SODIUM CHLORIDE 0.9% 1,000 ML IV STA ×2 (12:13→14:23)
[2021-05-02] MEDS ORDERED: ONDANSETRON 4 MG/2 ML VIAL IVP STA (12:14)
--- NOTE | 2021-05-02 12:30 | XRAY Report ---
PROCEDURE: Chest 1 View X-Ray INDICATIONS: chest pain TECHNIQUE: One view of the chest was acquired. COMPARISON: October 23, 2020 FINDINGS: SUPPORT DEVICES: Sternotomy wires and evidence of CABG are again demonstrated. LUNGS/PLEURA: Mildly prominent interstitial markings, which may reflect chronic change versus pulmona ry vascular congestion. MEDIASTINUM: Enlargement of the cardiac silhouette, partially exaggerated by technique. BONES/SOFT TISSUES: No acute abnormality. IMPRESSION: 1.Pulmonary vascular congestion versus chronic interstitial change. Reviewed by: Roberto Carlos Kilpatrick MD on 05/02/2021 12:29 PM PST Approved by: Roberto Carlos Kilpatrick MD on 05/02/2021 12:29 PM [facility] Station ID: [id number]
[2021-05-02 12:35] LABS: BASOPHILS # (AUTO) 0.1 10^3/uL (0.0-0.1); BASOPHILS % (AUTO) 0.5 %; EOSINOPHILS # (AUTO) 0.3 10^3/uL (0.0-0.7); EOSINOPHILS % (AUTO) 2.9 %; HGB - HEMOGLOBIN 8.6 g/dL (12.0-16.0); LYMPHOCYTES # (AUTO) 0.9 10^3/uL (1.5-3.5); LYMPHOCYTES % (AUTO) 8.1 %; MEAN CORPUSCULAR HEMOGLOBIN 28.9 pg (27.0-31.0); MEAN CORPUSCULAR HGB CONC 31.9 g/dL (32.0-36.0); MEAN CORPUSCULAR VOLUME 90.6 fL (81.0-99.0); MEAN PLATELET VOLUME 8.4 fL (7.9-10.8); MONOCYTES # (AUTO) 1.4 10^3/uL (0.0-1.0); MONOCYTES % (AUTO) 12.6 %; NEUTROPHILS # (AUTO) 8.1 10^3/uL (1.5-6.6); NEUTROPHILS % (AUTO) 74.9 %; PLT - PLATELET COUNT 518 10^3/uL (130-450); RED BLOOD COUNT 2.98 10^6/uL (4.20-5.40); WHITE BLOOD COUNT 10.9 x10^3/uL (4.8-10.8)
[2021-05-02 12:49] LABS: ALBUMIN 2.5 g/dL (3.2-5.5); ALBUMIN/GLOBULIN RATIO 0.4 (1.0-2.2); BILIRUBIN,TOTAL 0.6 mg/dL (0.2-1.0); CALCIUM 9.1 mg/dL (8.5-10.3); CREATININE 2.3 mg/dL (0.4-1.0); MAGNESIUM 2.3 mg/dL (1.7-2.8); TOTAL PROTEIN 8.4 g/dL (6.7-8.2)
[2021-05-02 12:52] LABS: BILIRUBIN,URINE NEGATIVE (NEGATIVE); GLUCOSE, URINE (UA) NEGATIVE (NEGATIVE); KETONES,URINE (UA) NEGATIVE (NEGATIVE); LEUKOCYTE ESTERASE, URINE MODERATE (NEGATIVE); NITRITE,URINE NEGATIVE (NEGATIVE); OCCULT BLOOD,URINE TRACE-INTA (NEGATIVE); PROTEIN,URINE NEGATIVE (NEGATIVE); UROBILINOGEN,URINE 0.2 (NORMAL) E.U./dL (NORMAL)
[2021-05-02 12:54] LABS: CLARITY,URINE HAZY (CLEAR)
[2021-05-02] MEDS ORDERED: METOPROLOL 5 MG/5 ML VIAL IVP STA (13:11)
[2021-05-02] MEDS ORDERED: METOPROLOL TARTRATE 50 MG TABLET PO STA (13:12)
[2021-05-02 13:31] LABS: RBC,URINE 0-5 /HPF (0-5); WBC,URINE >25 /HPF (0-5)
[2021-05-02 13:32] LABS: BACTERIA,URINE Many /HPF (None Seen); SQUAMOUS EPITHELIAL CELL,UR MOD Squamous (<= Few)
[2021-05-02 14:37] LABS: B. PARAPERTUSSIS- RESP PCR PAN NOT DETECTED; B. PERTUSSIS- RESP PCR PANEL NOT DETECTED; C. PNEUMONIAE- RESP PCR PANEL NOT DETECTED; CORONAVIRUS 229E-RESP PCR NOT DETECTED; CORONAVIRUS HKU1-RESP PCR NOT DETECTED; CORONAVIRUS NL63-RESP PCR NOT DETECTED; CORONAVIRUS OC43-RESP PCR NOT DETECTED; HUMAN METAPNEUMOVIRUS NOT DETECTED; INFLUENZA A- RESP PCR PANEL NOT DETECTED; INFLUENZA B - RESP PCR PANEL NOT DETECTED; M. PNEUMONIAE- RESP PCR PANEL NOT DETECTED; PARAINFLUENZA VIRUS 1 NOT DETECTED; PARAINFLUENZA VIRUS 2 NOT DETECTED; PARAINFLUENZA VIRUS 3 NOT DETECTED; PARAINFLUENZA VIRUS 4 NOT DETECTED; RHINOVIRUS/ENTEROVIRUS NOT DETECTED; RSV- RESP PCR PANEL NOT DETECTED; SARS-CoV-2 -RESP PCR PANEL NOT DETECTED
[2021-05-02] MEDS ORDERED: SODIUM CHLORIDE FLUSH 0.9% 10 ML SYRINGE IVP PRN (15:11)
[2021-05-02] MEDS ORDERED: ACETAMINOPHEN 325 MG TABLET PO PRN (15:25)
[2021-05-02] MEDS ORDERED: ONDANSETRON 4 MG/2 ML VIAL IVP PRN (15:25)
[2021-05-02] MEDS ORDERED: LACTATED RINGERS 1,000 ML IV SCH (16:00)
[2021-05-02 16:29] LABS: % IRON SATURATION 9 % (20-50); IRON 26 ug/dL (28-170); TOTAL IRON BINDING CAPACITY 283 ug/dL (250-450); TRANSFERRIN 202 mg/dL (192-382)
[2021-05-02] MEDS: SODIUM CHLORIDE FLUSH 0.9% 10 ML SYRINGE IVP SCH (17:54)
--- NOTE | 2021-05-02 19:11 | HISTORY & PHYSICAL EXAMINATION ---
Chief Complaint - Chief Complaint Chief Complaint: dry heaving and diarrhea History of Present Illness - Admitted From Admitted From:: [facility] ED - History Obtained From Records Reviewed: yes History obtained from: patient - History of Present Illness HPI Comment/Other: Patient is a 80 y/o female who has been having dry heaving and diarrhea for a couple of days. She has been unable to tolerate any oral intake except for broths and was very weak on presentation today. Her last episode of diarrhea was almost 24 hours ago. In the ED she was noted to have a creatinine of 2.3 and a hemoglobin of 8.6. 4 months ago her hemoglobin was 12.5. Fecal occult blood test was negative in the ED. She was presented for admission for IV hydration and closer monitoring of her hemoglobin. At bedside she denies chest pain, dyspnea, abdominal pain, fever or chills. She uses 2 L of oxygen at baseline at home. She gets around using a walker at home. She lives with her daughter. 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 History - Past Medical History Cardiovascular: reports: Congestive heart failure, Hypertension, Peripheral Vascular Disease, Atrial fibrillation (Paroxysmal) Respiratory: reports: Shortness of breath Neuro: reports: None, CVA Endocrine/Autoimmune: reports: Type 2 diabetes GI: reports: GERD, Colon polyps, Hemorrhoids : reports: Indwelling catheter Psych: reports: None Musculoskeletal: reports: Osteoarthritis, Chronic back pain Derm: reports: Other MRSA Hx?: No - Past Surgical History General: reports: Colonoscopy Cardiovascular: reports: CABG HEENT: reports: Cataracts, Tonsil/Adenoidectomy - Family & Social History Family History: Mother: , Father: Living Situation: With family (Lives with her daughter and son-in-law at their house.) Social History Notes: She herself gave up driving a car 10 years ago. She mostly sits in the house with the right leg elevated (with the right heel ulcer) and does not walk much. - Substance History Use: Uses substance without health or social issues: NONE (She quit smoking cigarettes 30 years ago. She has half of a beer on rare occasions. No history of marijuana use.) - POLST Patient has POLST: No POLST Status: DNR (The patient would not want CPR but would agree to be on the ventilator if it is temporary.) Meds/Allgy - Home Medications Home Medications: Ambulatory Orders Medication Instructions Recorded Confirmed Aspirin [Bhupinder] 162.5 mg PO BID 10/23/20 05/02/21 Clopidogrel [Plavix] 75 mg PO DAILY 10/23/20 05/02/21 Furosemide [Lasix] 40 mg PO BID 10/23/20 05/02/21 Insulin Glargine [Lantus Solostar] 30 units SQ BID 10/23/20 05/02/21 Metoprolol Tartrate [Lopressor] 50 mg PO BID 10/23/20 05/02/21 Ferrous Sulfate 325 mg PO DAILY 10/25/20 05/02/21 Multivitamin 0.5 tab PO DAILY 10/25/20 05/02/21 Spironolactone [Aldactone] 25 mg PO DAILY 10/25/20 05/02/21 Insulin Aspart [NovoLOG] 30 unit SUBQ BIDWM 10/26/20 05/02/21 amLODIPine [Norvasc] 2.5 mg PO DAILY #30 tablet 10/26/20 05/02/21 cilostazoL [Pletal] 100 mg PO BID #60 tablet 10/26/20 05/02/21 Cholecalciferol [Vitamin D3] 25 mcg PO DAILY 05/02/21 05/02/21 Fenofibrate 160 mg PO DAILY 05/02/21 05/02/21 Magnesium Oxide 400 mg PO DAILY 05/02/21 05/02/21 Omeprazole 40 mg PO DAILY 05/02/21 05/02/21 Simvastatin [Zocor] 20 mg PO QPM 05/02/21 05/02/21 - Allergies Allergies/Adverse Reactions: Allergies Allergy/AdvReac Type Severity Reaction Status Date / Time No Known Drug Allergies Allergy Verified 05/02/21 10:36 Review of Systems - Constitutional Constitutional: reports: Weakness, Poor appetite. denies: Fatigue, Fever, Chills - Eyes Eyes: denies: Pain - Ears, Nose & Throat Ears, Nose & Throat: denies: Ear pain, Sore throat - Cardiovascular Cariovascular: denies: Irregular heart rate, Palpitations, Chest pain, Edema, Lightheadedness, Syncope, Exertional dyspnea - Respiratory Respiratory: denies: Cough, SOB at rest, SOB with exertion - Gastrointestinal Gastrointestinal: reports: Nausea. denies: Abdominal pain, Abdominal dis tention, Constipation, Diarrhea, Black stools, Vomiting, Coffee grounds emesis, Reflux/heartburn - Genitourinary Genitourinary: denies: Dysuria, Frequency, Urgency, Hematuria - Musculoskeletal Musculoskeletal: denies: Muscle pain, Back pain - Integumentary Integumentary: denies: Rash, Pruritis - Neurological Neurological: reports: General weakness. denies: Focal weakness, Headache, Dizziness - Psychiatric Psychiatric: denies: Depression, Anxiety - Endocrine Endocrine: denies: Polyuria, Polydypsia - Hematologic/Lymphatic Hematologic/Lymphatic: reports: Anemia. denies: Bruising, Petechiae Prior Level of Functionality: She lives at home with her daughter. She gets around using a walker. However she mostly sits in one place most of the day. She is dependent for activities of daily living. She can feed herself. Once a week her daughter helps her with a sit down shower. Exam - Vital Signs Vital Signs: Vital Signs x48h Temp Pulse Pulse Resp BP BP Pulse Ox 05/02/21 16:42 36.5 C 69 20 151/54 H 99 05/02/21 16:02 36.5 C 66 20 144/55 H 99 05/02/21 15:41 65 17 179/65 H 100 05/02/21 15:00 65 18 195/65 H 99 05/02/21 13:48 72 15 155/83 H 100 05/02/21 12:46 80 22 206/69 H 98 - Physical Exam General Appearance: positive: No acute distress, Alert Eyes Bilateral: positive: PERRL, EOMI ENT: positive: Dry mucous membranes Neck: positive: No JVD, Trachea midline Cardiovascular: positive: Regular rate & rhythm, No murmur Abdomen: positive: Non-tender, No organomegaly, Nml bowel sounds, No distention. negative: Guarding, Rebound Back: positive: Nml inspection Skin: positive: Skin rash, Decubitus (sacral) Extremities: positive: No pedal edema, Other (Wound on left foot currently wrapped with bandage) Neurologic/Psychiatric: positive: Oriented x3, Mood/affect nml Conclusion/Plan - Problem List (1) Acute kidney injury superimposed on chronic kidney disease Conclusion/Plan: Likely due to dehydration related to nausea, vomiting and diarrhea. Patient's creatinine is 2.3. Patient given gentle IV hydration with lactated Ringer at 100 mL/h. Anticipating improvement in renal function. We will recheck with morning labs. We will hold patient's furosemide and spironolactone. Zofran ordered for nausea and vomiting. (2) Nausea vomiting and diarrhea Conclusion/Plan: GI undetermined. Zofran ordered for nausea. C. difficile test and stool cultures ordered. However suspicion for C. difficile is low given lack of diarrhea in almost 24 hours. (3) Dehydration Conclusion/Plan: Secondary to nausea, vomiting and diarrhea. On IV hydration with lactated Ringer's at 100 mL/h. (4) Anemia Conclusion/Plan: Etiology undetermined. Stool occult blood test was negative. Hemoglobin was 8.6. 4 months ago hemoglobin was 12. Likely due to iron deficiency anemia. Iron level was 26, TIBC 283, percentage saturation 9, transferrin 202, ferritin 382.6. Ferrous sulfate 325 mg p.o. twice daily ordered. We will monitor H&H. (5) Elevated troponin I level Conclusion/Plan: Likely secondary to demand ischemia. Initial troponin was 43.1, repeat troponin 76.7. Will trend x1 more BNP was 328. 2D echocardiogram done in October 2020 showed mild to moderate concentric left ventricular hypertrophy. Overall left ventricular systolic function was normal with an ejection fraction of 55 to 60%. (7) HTN (hypertension) Conclusion/Plan: On metoprolol tartrate and amlodipine. Spironolactone and furosemide currently held. (8) PVD (peripheral vascular disease) Conclusion/Plan: On Plavix, aspirin and Pletal. Patient has a non-healing ulcers in bilateral lower extremities for which she is treated at the [facility] wound care clinic. (9) CHF (congestive heart failure) Conclusion/Plan: Chest x-ray showed pulmonary vascular congestion versus chronic interstitial change. BNP was 328. 2D echocardiogram done in October 2020 showed mild to moderate concentric left ventricular hypertrophy. Overall left ventricular systolic function was normal with an ejection fraction of 55 to 60%. Patient was given IV hydration in the ED for concern about dehydration and acute kidney injury related to nausea vomiting. However in light of the above findings will discontinue fluids for now. We will reevaluate in the morning regarding resuming Lasix and spironolactone. (10) Coronary artery disease Conclusion/Plan: Patient has undergone a CABG in the past. She is currently on Plavix and aspirin. She also takes metoprolol succinate and simvastatin. Initial troponin was 43.1 with repeat of 76.6. Will trend x1 more. - Lab Results Fish Bones: 05/02/21 19:10 05/02/21 12:30 Core Measures - Anticipated LOS I expect patient to be DC'd or transferred within 96 hours.: Yes - DVT/VTE - Prophylaxis VTE/DVT Device ordered at admit?: Yes VTE/DVT Prophylaxis med ordered at admit?: No
[2021-05-02 19:14] LABS: HCT - HEMATOCRIT 27.7 % (37.0-47.0); HGB - HEMOGLOBIN 8.4 g/dL (12.0-16.0)
[2021-05-03] MEDS: SODIUM CHLORIDE FLUSH 0.9% 10 ML SYRINGE IVP SCH ×2 (02:00→09:06)
[2021-05-03 06:16] LABS: BASOPHILS # (AUTO) 0.1 10^3/uL (0.0-0.1); BASOPHILS % (AUTO) 0.6 %; EOSINOPHILS # (AUTO) 0.4 10^3/uL (0.0-0.7); EOSINOPHILS % (AUTO) 4.2 %; HCT - HEMATOCRIT 26.6 % (37.0-47.0); HGB - HEMOGLOBIN 8.4 g/dL (12.0-16.0); LYMPHOCYTES % (AUTO) 11.5 %; MEAN CORPUSCULAR HEMOGLOBIN 28.8 pg (27.0-31.0); MEAN CORPUSCULAR HGB CONC 31.6 g/dL (32.0-36.0); MEAN CORPUSCULAR VOLUME 91.1 fL (81.0-99.0); MEAN PLATELET VOLUME 8.6 fL (7.9-10.8); MONOCYTES # (AUTO) 1.4 10^3/uL (0.0-1.0); MONOCYTES % (AUTO) 15.9 %; NEUTROPHILS % (AUTO) 66.6 %; PLT - PLATELET COUNT 491 10^3/uL (130-450); RED BLOOD COUNT 2.92 10^6/uL (4.20-5.40)
[2021-05-03 06:25] LABS: CALCIUM 8.9 mg/dL (8.5-10.3); CREATININE 1.7 mg/dL (0.4-1.0); POTASSIUM 4.4 mmol/L (3.5-5.0)
[2021-05-03] MEDS ORDERED: FERROUS SULFATE 325 MG TABLET PO SCH (08:00)
[2021-05-03] MEDS: INSULIN ASPART 300 UNIT/3 ML PEN SUBQ SCH ×2 (08:30→12:37)
[2021-05-03 08:48] LABS: ESTIMATED AVERAGE GLUCOSE 134 mg/dL (70-100); HEMOGLOBIN A1c% 6.3 % (4.27-6.07)
[2021-05-03] MEDS ORDERED: CLOPIDOGREL 75 MG TABLET PO SCH (09:00)
[2021-05-03] MEDS ORDERED: ASPIRIN 325 MG TABLET PO SCH (09:00)
[2021-05-03] MEDS ORDERED: cilostazoL 100 MG TABLET PO SCH (09:00)
[2021-05-03] MEDS ORDERED: PANTOPRAZOLE 40 MG TABLET PO SCH (09:00)
[2021-05-03] MEDS ORDERED: INSULIN GLARGINE 300 UNIT/3 ML PEN SUBQ SCH (09:00)
[2021-05-03] MEDS ORDERED: CHOLECALCIFEROL 25 MCG TABLET PO SCH (09:00)
[2021-05-03] MEDS ORDERED: amLODIPine 5 MG TABLET PO SCH (09:00)
[2021-05-03] MEDS ORDERED: FENOFIBRATE 48 MG TABLET PO SCH (09:00)
[2021-05-03] MEDS ORDERED: METOPROLOL TARTRATE 50 MG TABLET PO SCH (09:00)
--- NOTE | 2021-05-03 10:50 | PHARMACY PROGRESS NOTE ---
- Best Possible Medication History Admit Date and Time: 05/02/21 1511 Processed by: Pharmacy Medication History completed: Yes Secondary Source(s): Written medication list, Insurance records, Previous admit records As the person ultimately responsible for medication therapy, providers are able to order a medication from an existing home medication list in [facility] via the "Reconcile Routine" prior to Confirmation of that medication by technology support analyst. Such practice is discouraged except when the physician, in their clinical judgment, deems that a medical need exists for a medication without regard to previous use.
[2021-05-03] MEDS ORDERED: LOPERAMIDE 2 MG CAPSULE PO PRN (10:59)
[2021-05-03] MEDS: FUROSEMIDE 40 MG TABLET PO SCH ×2 (11:48→15:30)
--- NOTE | 2021-05-03 11:56 | Discharge Plan ---
Discharge Plan Problem Reviewed?: Yes Disposition: Home, Self Care Condition: Stable Diet: Diabetic Activity Restrictions: Activity as Tolerated Shower Restrictions: No (fall precaution) Instruction Topics: Nausea Vomit Control, ED Viral Syndrome, Dehydration, Anemia Iron Deficiency Ch Health Concerns: virus gastritis, dehydration, anemia Plan of Treatment: Your nausea and dry heaving are resolved now, and you have no diarrhea, and you tolerate regular diet. it is likely caused by virus gastritis. You may keep hydration at home, and resume your home medications as the schedule. You may resume [facility] for your wound care as well. Your occult stool test is negative for GI bleeding. You are found to have iron deficiency anemia, you may continue home iron pill. Care Goals: Stabilization and resolve of your acute nausea dry heaves and dehydration. Assessment: Discussed the care plan with you, answered your questions, you understood Additional Instructions or Follow Up instructions: You may follow-up with your PCP in 1 week, check your hemoglobin level in one week. Should your symptoms return or worse, you may present to ER or call 911 for help Follow-Up Care: [facility] - Medical No Smoking: If you smoke, Please STOP! Call for help. Follow-up with: Provider,Other [Primary Care Provider] -
--- NOTE | 2021-05-03 12:06 | DISCHARGE SUMMARY ---
Discharge Summary Admit Date: 05/02/21 Discharge Date: 05/03/21 Discharging Provider: Dedrick Haro Condition at Discharge: Stable Discharge Disposition: 01 Home, Self Care Discharge Facility Name: home - DIAGNOSES Discharge Diagnoses with Status of Each Condition: (1) Acute kidney injury superimposed on chronic kidney disease resolved. creatinine is down to 1.7 as pt's baseline, keep hydration and resume home meds (2) Nausea vomiting and diarrhea resolved. pt tolerated diet without nausea or vomiting or abdominal pain. pt has no more diarrhea. she had solid bowel movement. it is likely virus gastritis. pt report"I should stay one more day at home then my bed at hospital could be given to somebody really needed" pt had PT evaluation, and PT recommended pt can be safely d/c to home. (3) Dehydration resolved. (4) Anemia iron Deficiency anemia, patient's occult stool blood test is negative. resume her home iron pill (5) Elevated troponin I level slight elevated and flat in repeat test. pt denies chest pain. Patient is hemodynamic stable. it is likely slight demand ishemia (7) HTN (hypertension) stable, resume home meds (8) PVD (peripheral vascular disease) stable, resume home meds (9) CHF (congestive heart failure) stable, likely not on exacerbation (10) Coronary artery disease stable resume home meds. (11)lower extremity ulcer chronic, pt has been followup with [facility] for wound care, pt may resume [facility] clinic care. - HPI History of Present Illness: refer from Patient is a 80 y/o female who has been having dry heaving and diarrhea for a couple of days. She has been unable to tolerate any oral intake except for broths and was very weak on presentation today. Her last episode of diarrhea was almost 24 hours ago. In the ED she was noted to have a creatinine of 2.3 and a hemoglobin of 8.6. 4 months ago her hemoglobin was 12.5. Fecal occult blood test was negative in the ED. She was presented for admission for IV hydration and closer monitoring of her hemoglobin. At bedside she denies chest pain, dyspnea, abdominal pain, fever or chills. She uses 2 L of oxygen at baseline at home. She gets around using a walker at home. She lives with her daughter. 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 - ALLERGIES Allergies/Adverse Reactions: Allergies Allergy/AdvReac Type Severity Reaction Status Date / Time No Known Drug Allergies Allergy Verified 05/02/21 10:36 - MEDICATIONS Home Medications: Ambulatory Orders Medication Instructions Recorded Confirmed Aspirin [Bhupinder] 162.5 mg PO BID 10/23/20 05/02/21 Clopidogrel [Plavix] 75 mg PO DAILY 10/23/20 05/02/21 Furosemide [Lasix] 40 mg PO BID 10/23/20 05/02/21 Insulin Glargine [Lantus Solostar] 30 units SQ BID 10/23/20 05/02/21 Metoprolol Tartrate [Lopressor] 50 mg PO BID 10/23/20 05/02/21 Ferrous Sulfate 325 mg PO DAILY 10/25/20 05/02/21 Multivitamin 0.5 tab PO DAILY 10/25/20 05/02/21 Spironolactone [Aldactone] 25 mg PO DAILY 10/25/20 05/02/21 Insulin Aspart [NovoLOG] 30 unit SUBQ BIDWM 10/26/20 05/02/21 amLODIPine [Norvasc] 2.5 mg PO DAILY #30 tablet 10/26/20 05/02/21 cilostazoL [Pletal] 100 mg PO BID #60 tablet 10/26/20 05/02/21 Cholecalciferol [Vitamin D3] 25 mcg PO DAILY 05/02/21 05/02/21 Fenofibrate 160 mg PO DAILY 05/02/21 05/02/21 Magnesium Oxide 400 mg PO DAILY 05/02/21 05/02/21 Omeprazole 40 mg PO DAILY 05/02/21 05/02/21 Simvastatin [Zocor] 20 mg PO QPM 05/02/21 05/02/21 - PHYSICAL EXAM AT DISCHARGE General Appearance: positive: No acute distress, Alert. negative: Lethargic Eyes Bilateral: positive: Normal inspection. negative: No lid inflammation ENT: positive: ENT inspection nml, No signs of dehydration. negative: Purulent nasal drainage Neck: positive: Nml inspection, Trachea midline. negative: Tracheal deviation Respiratory: positive: Chest non-tender, No respiratory distress. negative: Wheezes Cardiovascular: positive: Regular rate & rhythm. negative: Tachycardia, Bradycardia, Systolic murmur Peripheral Pulses: positive: 2+ Abdomen: positive: Non-tender, Nml bowel sounds, No distention. negative: Tenderness Back: positive: Nml inspection Skin: positive: Warm, Dry. negative: Cyanosis Extremities: positive: Non-tender, Full ROM, Nml appearance Neurologic/Psychiatric: positive: Oriented x3, Motor nml, Sensation nml, Mood/affect nml. negative: Weakness, Sensory loss, Facial droop, Slurred/abnml speech, Depressed mood/affect - LABS Result Diagrams: 05/03/21 05:20 05/03/21 05:20 - FOLLOW UP Follow Up: Your nausea and dry heaving are resolved now, and you have no diarrhea, and you tolerate regular diet. it is likely caused by virus gastritis. You may keep hydration at home, and resume your home medications as the schedule. You may resume [facility] for your wound care as well. Your occult stool test is negative for GI bleeding. You are found to have iron deficiency anemia, you may continue home iron pill. You may follow-up with your PCP in 1 week, check your hemoglobin level in one week. Should your symptoms return or worse, you may present to ER or call 911 for help - TIME SPENT Time Spent in Discharge (Minutes): 30
[2021-05-03 14:02] VITALS: BP 140/50
[2021-05-03] MEDS ORDERED: ATORVASTATIN 10 MG TABLET PO SCH (21:00)
== END 2021-05-03 15:30 | disposition home or self-care (01) ==
LOC: EDUNIT# → ED 10:22 → MS2 15:11
PROVIDERS: ADMIT Internal Medicine; ATTEND Nurse Practitioner Gerontology
DX: N17.9 Acute kidney failure, unspecified (principal); N18.4 Chronic kidney disease, stage 4 (severe); D50.9 Iron deficiency anemia, unspecified; E11.22 Type 2 diabetes mellitus with diabetic chronic kidney disease; E11.51 Type 2 diabetes mellitus with diabetic peripheral angiopathy without gangrene; E11.649 Type 2 diabetes mellitus with hypoglycemia without coma; E86.0 Dehydration; I13.0 Hypertensive heart and chronic kidney disease with heart failure and stage 1 through stage 4 chronic kidney disease, or unspecified chronic kidney disease; I25.10 Atherosclerotic heart disease of native coronary artery without angina pectoris; I27.20 Pulmonary hypertension, unspecified; I48.0 Paroxysmal atrial fibrillation; I50.9 Heart failure, unspecified; L97.909 Non-pressure chronic ulcer of unspecified part of unspecified lower leg with unspecified severity; L89.159 Pressure ulcer of sacral region, unspecified stage; K21.9 Gastro-esophageal reflux disease without esophagitis; R07.9 Chest pain, unspecified; R10.9 Unspecified abdominal pain; R11.2 Nausea with vomiting, unspecified; R19.7 Diarrhea, unspecified; R77.8 Other specified abnormalities of plasma proteins; Z20.822 Contact with and (suspected) exposure to COVID-19; Z66 Do not resuscitate; Z79.02 Long term (current) use of antithrombotics/antiplatelets; Z79.4 Long term (current) use of insulin; Z79.82 Long term (current) use of aspirin; Z79.899 Other long term (current) drug therapy; Z87.891 Personal history of nicotine dependence; Z95.1 Presence of aortocoronary bypass graft
CPT/HCPCS: 36415; 71045; 80048; 80053; 81001; 82272; 82728; 83036; 83540; 83690; 83735; 83880; 84466; 84484; 85014; 85018; 85025; 87631; 96361; 96374; 96375; 97161; 99284; 99285; A9270; G0378; J1815; J7120; 0202U; 81003; 87086

== ENCOUNTER 2021-05-19 14:58 | Outpatient (CLI) | payer MEDICARE ==
[2021-05-19 15:12] LABS: BILIRUBIN,URINE NEGATIVE (NEGATIVE); GLUCOSE, URINE (UA) NEGATIVE (NEGATIVE); KETONES,URINE (UA) NEGATIVE (NEGATIVE); LEUKOCYTE ESTERASE, URINE LARGE (NEGATIVE); NITRITE,URINE NEGATIVE (NEGATIVE); OCCULT BLOOD,URINE MODERATE (NEGATIVE); PROTEIN,URINE 30 mg/dL (NEGATIVE); UROBILINOGEN,URINE 0.2 (NORMAL) E.U./dL (NORMAL)
[2021-05-19 15:22] LABS: BACTERIA,URINE Many /HPF (None Seen); CLARITY,URINE TURBID (CLEAR); SQUAMOUS EPITHELIAL CELL,UR MOD Squamous (<= Few); WBC,URINE >25 /HPF (0-5)
== END 2021-05-19 14:59 | disposition home or self-care (01) ==
LOC: LAB.R 14:58
PROVIDERS: ATTEND Family Medicine
DX: N39.0 Urinary tract infection, site not specified (principal)
CPT/HCPCS: 81001; 87086